=== PATIENT | male | born 1955 ===

== ENCOUNTER 2016-12-30 09:44 | Inpatient (IN) | payer OTHER, MEDICAID ==
[~2016-12-30] VITALS: Ht 170.2 cm; Wt 75.0 kg
[2016-12-30] VITALS (9 sets, daily range): BP systolic 108–143; BP diastolic 72–74; PULSE 93–103; RESP 16–33; TEMP 98.6; Ht 170.2 cm; Wt 75.0 kg
[2016-12-30] MEDS ORDERED: LORAZEPAM 2 MG INJ ONE (09:46)
[2016-12-30] MEDS ORDERED: SOD CHLORIDE 0.9% 1,000 ML IV STA (09:46)
[2016-12-30] MEDS ORDERED: LORAZEPAM 2 MG INJ IV ONE (10:00)
[2016-12-30] MEDS ORDERED: SODIUM CHLORIDE 0.9% 1L BAG IV* STA (10:02)
[2016-12-30 10:13] LABS: ADD SCAN DIFF NO
[2016-12-30 10:17] LABS: BASOPHILS % 0.2 % (0.0-2.0); EOSINOPHILS # 0.1 10^3/ul (0.0-0.5); EOSINOPHILS % 0.7 % (0.0-7.0); HEMATOCRIT 33.8 % (42.0-52.0); HEMOGLOBIN 10.8 g/dl (14.0-18.0); LYMPHOCYTES # 4.2 10^3/ul (0.8-2.9); LYMPHOCYTES % 26.6 % (15.0-51.0); MEAN CORPUSCULAR HEMOGLOBIN 29.9 pg (29.0-33.0); MEAN CORPUSCULAR VOLUME 93.6 fl (82.0-101.0); MEAN PLATELET VOLUME 11.2 fl (7.4-10.4); MONOCYTE # 1.1 10^3/ul (0.3-0.9); MONOCYTES % 6.8 % (0.0-11.0); NEUTROPHIL # 9.9 10^3/ul (1.6-7.5); NEUTROPHILS % 63.3 % (39.0-77.0); PLATELET COUNT 344 10^3/UL (140-415); RED BLOOD COUNT 3.61 10^6/ul (4.70-6.10); RED CELL DISTRIBUTION WIDTH 15.5 % (11.5-14.5); WHITE BLOOD COUNT 15.6 10^3/ul (4.8-10.8)
--- NOTE | 2016-12-30 10:29 | RADRPT ---
PROCEDURE: Chest Radiograph. CLINICAL INDICATION: Respiratory distress. TECHNIQUE: Single frontal chest radiograph. COMPARISON: None available FINDINGS: The patient is rotated. Heart size is poorly evaluated. The cardiomediastinal silhouette is grossl y within normal limits. A tracheostomy tube is present. No infiltrate or effusion is seen. The bones are intact. IMPRESSION: 1. No evidence of acute cardiopulmonary disease. RPTAT: KK .Saurav Natarajan MD, MD Date Time Electronically viewed and signed by .Saurav Natarajan MD, MD on 12/30/2016 10:28 .B/
[2016-12-30] MEDS ORDERED: CEFEPIME 1GM/50 ML (PMX) 50 ML IVPB ONE (10:30)
[2016-12-30] MEDS ORDERED: ACETAMINOPHEN 650 MG SUPP PR ONE (10:30)
[2016-12-30 10:36] LABS: ALBUMIN 3.4 g/dl (3.3-4.9); ALBUMIN/GLOBULIN RATIO 0.91; BILIRUBIN,INDIRECT 0.2 mg/dl (0-1.1); BILIRUBIN,TOTAL 0.2 mg/dl (0.2-1.3); CALCIUM 9.5 mg/dl (8.4-10.2); CREATININE 1.02 mg/dl (0.61-1.24); TOTAL PROTEIN 7.1 g/dl (6.1-8.1)
[2016-12-30 10:41] LABS: AADO2 Arterial 617.1 mmHg (7.0-24.0); Allen Test ACCEPTAB; Arterial Base Excess -1.3 mmol/L (-3.0-3); Arterial COHb 0.3 % (0.0-3.0); Arterial Fraction of Oxyhgb 90.5 % (93.0-99.0); Arterial MetHb 0.2 % (0.0-1.5); Arterial Total Hemglobin 11.6 g/dl (12.0-18.0); MODE VENT - AC
[2016-12-30 10:47] LABS: TROPONIN-I 0.068 ng/ml (0.00-0.12)
[2016-12-30] MEDS ORDERED: VANCOMYCIN 1 GM (PMX) 250 ML IVPB SCH (11:00)
[2016-12-30] MEDS ORDERED: MAGNESIUM HYDROXIDE 30ML CUP PO PRN (11:30)
[2016-12-30] MEDS ORDERED: ONDANSETRON 4 MG INJ IV PRN (11:30)
[2016-12-30] MEDS ORDERED: ACETAMINOPHEN 650 MG SUPP PR PRN (11:30)
[2016-12-30] MEDS ORDERED: DOCUSATE SODIUM 100 MG CAP PO PRN (11:30)
[2016-12-30] MEDS ORDERED: NACL 0.9% 3 ML SYG IV SCH (11:30)
[2016-12-30] MEDS ORDERED: SOD CHLORIDE 0.9% 2,330 ML IV ONE (11:30)
[2016-12-30] MEDS ORDERED: VANCOMYCIN IV PER PHARMACY XX SCH (11:30)
[2016-12-30] MEDS ORDERED: BISACODYL 10 MG SUPP PR PRN ×2 (11:30→15:30)
[2016-12-30 12:01] LABS: ADD UMIC NO; UR ASCORBIC ACID 40 mg/dL (NEGATIVE); UR BILIRUBIN (Dip) NEGATIVE (NEGATIVE); UR BLOOD (Dip) NEGATIVE (NEGATIVE); UR CLARITY CLEAR (CLEAR); UR COLOR YELLOW (YELLOW); UR GLUCOSE (Dip) NEGATIVE (NEGATIVE); UR KETONES (Dip) NEGATIVE (NEGATIVE); UR LEUKOCYTE ESTERASE (Dip) NEGATIVE Leu/ul (NEGATIVE); UR NITRITE (Dip) NEGATIVE (NEGATIVE); UR SPECIFIC GRAVITY (Dip) 1.014 (1.003-1.030); UR TOTAL PROTEIN (Dip) NEGATIVE (NEGATIVE); UR UROBILINOGEN (Dip) NEGATIVE (NEGATIVE)
[2016-12-30] MEDS ORDERED: SERT-165 PO (12:07)
[2016-12-30] MEDS ORDERED: ACET-2047 GTB ×4 (12:14→12:31)
[2016-12-30] MEDS ORDERED: FLUC10SU2 GTB (12:16)
[2016-12-30] MEDS ORDERED: FURO-109 G-TUBE (12:17)
[2016-12-30] MEDS ORDERED: LORA-441 PO (12:18)
[2016-12-30] MEDS ORDERED: KEP100S GTB (12:18)
[2016-12-30] MEDS ORDERED: PANT40TA3 PO (12:19)
[2016-12-30] MEDS ORDERED: UDPHE GTB (12:20)
[2016-12-30] MEDS ORDERED: LACT1CAP4 GTB (12:22)
[2016-12-30] MEDS ORDERED: POLY15DR25 OP (12:23)
[2016-12-30] MEDS ORDERED: BEN25 PO (12:24)
[2016-12-30] MEDS ORDERED: ENAL2.5T GTB (12:26)
[2016-12-30] MEDS ORDERED: ONDA4TAB8 GTB (12:27)
[2016-12-30] MEDS ORDERED: CRAN3875 GTB (12:28)
[2016-12-30] MEDS ORDERED: ACET-141 GTB (12:29)
[2016-12-30] MEDS ORDERED: DOCU-144 GTB (12:32)
[2016-12-30] MEDS ORDERED: MAGN400O4 GTB (12:32)
[2016-12-30] MEDS ORDERED: BISA10SU55 RC (12:33)
[2016-12-30] MEDS ORDERED: NA P135E RC (12:34)
[2016-12-30] MEDS ORDERED: AMIN30LI GTB (12:35)
[2016-12-30] MEDS ORDERED: ASCO500C7 GTB (12:39)
[2016-12-30] MEDS ORDERED: MULT-761 GTB (12:39)
[2016-12-30] MEDS ORDERED: ZINC220C5 GTB (12:40)
--- NOTE | 2016-12-30 13:47 | ERA ---
ER Documentation Chief Complaint Date/Time DATE: 12/30/16 TIME: 13:19 Chief Complaint BIB RA FOR EVAL OF RESP DISTRESS HPI 61-year-old man brought in by EMS from intermediate for shortness of breath, difficulty with bag valve mask via tracheostomy tube, and low oxygen saturation. Patient has history of tracheostomy but normally breathing spontaneously. He suffered anoxic brain injury secondary to accidental airway obstruction and cardiac arrest back in June 2016. He has been bedbound and in the intermediate and has had previous infections. He has a history of seizure disorder, most likely benzodiazepine withdrawal seizures and had a history of recreational benzodiazepine use prior to June. HPI was limited as patient is nonverbal, supplemented by reviewing intermediate records, speaking to EMS, speaking to family were later at the bedside. ROS All systems reviewed and are negative except as per history of present illness. Medications Home Meds Reported Medications Zinc Sulfate* (Zinc Sulfate*) 220 Mg Cap, 220 MG GTB DAILY, CAP 12/30/16 Ascorbic Acid* (Vitamin C*) 500 Mg Capsule.sa, 500 MG GTB DAILY, CAP 12/30/16 Multivitamin (MULTI VITAMIN DAILY) 1 Each Tablet, 1 TAB GTB DAILY, TAB 12/30/16 Amino Acids/Protein Hydrolys (PRO-STAT LIQUID) 30 Ml Liquid.pkt, 30 ML GTB DAILY SUGAR FREE 12/30/16 Na Phos,M-B/Na Phos,Di-Ba (ENEMA READY TO USE) 135 Ml Enema, 135 ML RC PRN Y for CONSTIPATION, ENEMA 12/30/16 Bisacodyl (Dulcolax) 10 Mg Supp.rect, 10 MG RC PRN Y for CONSTIPATION, SUPP.RECT 12/30/16 Magnesium Hydroxide* (Milk Of Magnesia*) 400 Mg/5 Ml Oral.susp, 30 ML GTB DAILY Y for CONSTIPATION, ML 12/30/16 Docusate Sodium* (Colace*) 100 Mg Capsule, 100 MG GTB QHS, #60 CAP 12/30/16 Acetaminophen* (Acetaminophen*) 650 Mg Tablet, 650 MG GTB TRACH CHANGE, #30 TAB 12/30/16 Acetaminophen* (Acetaminophen*) 650 Mg Tablet, 650 MG GTB Q4 Y for FEVER GREATER THAN 100.6, #30 TAB 12/30/16 Acetaminophen* (Acetaminophen*) 650 Mg Tablet, 650 MG GTB Q6H Y for MILD PAIN LEVEL 1-3, #30 TAB 12/30/16 Acetaminophen* (Acetaminophen*) 500 MG Extra Strength Tablet, 1000 MG GTB Q6H Y for MODERATE PAIN LEVEL 4-6, TAB 12/30/16 Cran/Vitc/Mannose/Inulin/Brom (Uti-Stat Liquid) 3,875 Mg/30 Ml Liquid, 3875 MG GTB DAILY 12/30/16 Ondansetron Hcl* (Zofran*) 4 Mg Tablet, 4 MG GTB Q6H Y for NAUSEA AND OR VOMITING, TAB 12/30/16 Enalapril Maleate* (Enalapril Maleate*) 2.5 Mg Tablet, 2.5 MG GTB Q6 Y for ELEVATED BLOOD PRESSURE, TAB FOR BP OVER 160 12/30/16 Diphenhydramine Hcl* (Benadryl*) 25 Mg Cap, 25 MG PO Q4 Y for ITCHING, CAP 12/30/16 Polyvinyl Alcohol (Tears Again) 15 Ml Drops, 1 DRP OP Q4, BOTTLE 12/30/16 Lactobacillus Acidophilus/Pect (Acidophilus-Pectin Capsule) 1 Each Capsule, 1 EACH GTB BID, CAP 12/30/16 Phenobarbital* (Phenobarbital* Liq) 20 Mg/5 Ml Elix, 60 MG GTB TID for 30 Days, BOTTLE 12/30/16 Pantoprazole* (Protonix*) 40 Mg Tablet.dr, 40 MG PO DAILY, TAB 12/30/16 Lorazepam* (Ativan*) 0.5 Mg Tablet, 0.5 MG PO Q6, #60 TAB 12/30/16 Levetiracetam* (Keppra* (Ped)) 100 Mg/Ml Liq, 1000 MG GTB BID for 30 Days, BOTTLE 12/30/16 Furosemide* (Lasix*) 40 Mg Tablet, 40 MG G-TUBE DAILY, TAB 12/30/16 Fluconazole (Fluconazole) 10 Mg/1 Ml Susp.recon, 200 MG GTB DAILY 12/30/16 Acetaminophen* (Acetaminophen*) 650 Mg Tablet, 650 MG GTB BID Y for PAIN AND OR ELEVATED TEMP, #30 TAB 12/30/16 Discontinued Reported Medications Sertraline Hcl* (Sertraline Hcl*) 100 Mg Tablet, 100 MG PO DAILY, #30 TAB 12/30/16 Allergies Allergies: Coded Allergies: No Known Allergy (Unverified , 12/30/16) PMhx/Soc Previous benzodiazepine use with withdrawal seizures, seizure disorder, anoxic encephalopathy, respiratory failure on mechanical ventilator and tracheostomy tube, dysphagia, depression, hypertension, gastritis History of Surgery: Yes (TRACHEOSTOMY , g-tube placment ) Anesthesia Reaction: No Hx Neurological Disorder: Yes (anoxic brain injury ) Hx Miscellaneous Medical Probl: Yes (benzo abuse ( ativan) per daughter ) Hx Alcohol Use: No (UTD) Hx Substance Use: No (UTD) Smoking Status: Never smoker FmHx Family History: No diabetes Physical Exam Vitals Vital Signs Date Time Temp Pulse Resp B/P Pulse Ox O2 Delivery O2 Flow Rate FiO2 12/30/16 13:04 104 28 94 100 12/30/16 12:27 98.6 104 20 100/68 100 Mechanical Ventilator 12/30/16 11:10 128 38 94 100 12/30/16 10:26 97.1 12/30/16 10:07 129 36 95 100 12/30/16 09:53 99.1 119 26 137/121 100 Physical Exam GENERAL: Elderly debilitated appearing man with a tracheostomy, appears to be seizing, febrile temperature 100.9F HEENT: Dry mucous membranes, pink conjunctiva, tracheostomy tube in place, eyes deviated upward NEURO: Upward eye deviation, bilateral upper extremity tonicity with clonic movement of the right index finger overall appearance of seizure activity, nonverbal CARDIAC: Tachycardic and regular LUNGS: Poor breath sounds bilaterally, no wheezing or stridor ABDOMEN: Soft nontender, no guarding, no rigidity, no rebound, no psoas sign no obturator sign. SKIN: Warm and dry to touch, superficial contusions, no hematomas or lacerations EXTREMITIES: No clubbing cyanosis or edema, diffuse muscular wasting and contractures to the upper and lower extremities PSYCH: Unable to assess Result Diagram: 12/30/16 1000 12/30/16 1000 Results 24 hrs Laboratory Tests Test 12/30/16 10:00 12/30/16 10:20 12/30/16 11:45 White Blood Count 15.610^3/ul Red Blood Count 3.6110^6/ul Hemoglobin 10.8g/dl Hematocrit 33.8% Mean Corpuscular Volume 93.6fl Mean Corpuscular Hemoglobin 29.9pg Mean Corpuscular Hemoglobin Concent 32.0g/dl Red Cell Distribution Width 15.5% Platelet Count 23048^3/UL Mean Platelet Volume 11.2fl Neutrophils % 63.3% Lymphocytes % 26.6% Monocytes % 6.8% Eosinophils % 0.7% Basophils % 0.2% Nucleated Red Blood Cells % 0.0/100WBC Neutrophils # 9.910^3/ul Lymphocytes # 4.210^3/ul Monocytes # 1.110^3/ul Eosinophils # 0.110^3/ul Basophils # 0.010^3/ul Nucleated Red Blood Cells # 0.010^3/ul Sodium Level 142mmol/L Potassium Level 4.0mmol/L Chloride Level 95mmol/L Carbon Dioxide Level 30mmol/L Anion Gap 21 Blood Urea Nitrogen 32mg/dl Creatinine 1.02mg/dl Glucose Level 160mg/dl Lactic Acid Level 2.8mmol/L Calcium Level 9.5mg/dl Total Bilirubin 0.2mg/dl Direct Bilirubin 0.00mg/dl Indirect Bilirubin 0.2mg/dl Aspartate Amino Transf (AST/SGOT) 234IU/L Alanine Aminotransferase (ALT/SGPT) 285IU/L Alkaline Phosphatase 157IU/L Troponin I 0.068ng/ml Total Protein 7.1g/dl Albumin 3.4g/dl Globulin 3.70g/dl Albumin/Globulin Ratio 0.91 Lipase 477U/L Blood Gas Specimen Source Blood arterial Arterial Blood Date Drawn 12/30/2016 10:30:11 AM Arterial Blood pH (Temp corrected) 7.450 Arterial Blood pCO2 (Temp correct) 32.4mmhg Arterial Blood pO2 (Temp corrected) 63.5mmHG Arterial Blood HCO3 22.0mmol/L Arterial Blood Base Excess -1.3mmol/L Arterial Blood Oxygen Saturation 91.0mmHG Emmanuel Test ACCEPTAB Arterial Blood Gas Puncture Site Right Radial Arterial Blood Carboxyhemoglobin 0.3% Arterial Blood Methemoglobin 0.2% Blood Gas A-a O2 Differential 617.1mmHg Oxyhemoglobin Percent 90.5% Total Hemoglobin 11.6g/dl Blood Gas Temperature 37.0C Blood Gas Respiration Rate 16.0 Blood Gas Actual Respiration Rate 38 Blood Gas Modality VENT - AC FiO2 100.0% Blood Gas Tidal Volume 600.0mL Blood Gas Low PEEP Setting 5.0cmH2O Blood Gas Notified Whom Ross Blood Gas Notified Time 12/30/2016 10:41:15 AM Urine Color YELLOW Urine Clarity CLEAR Urine pH 6.0 Urine Specific [place] 1.014 Urine Ketones NEGATIVEmg/dL Urine Nitrite NEGATIVEmg/dL Urine Bilirubin NEGATIVEmg/dL Urine Urobilinogen NEGATIVEmg/dL Urine Leukocyte Esterase NEGATIVELeu/ul Urine Hemoglobin NEGATIVEmg/dL Urine Glucose NEGATIVEmg/dL Urine Total Protein NEGATIVEmg/dl Current Medications Medications (Trade) Dose Ordered Sig/Wagner Route PRN Reason Start Time Stop Time Status Last Admin Dose Admin Lorazepam 2 mg 2 mg ONCE ONCE IV 12/30/16 10:00 12/30/16 10:35 DC 12/30/16 10:00 Sodium Chloride (NS) 1,000 ml @ 1,000 mls/hr Q1H STAT IV 12/30/16 09:46 12/30/16 10:45 DC 12/30/16 09:46 Sodium Chloride (NS) 2,000 ml BOLUS OVER 2 HOURS STAT IV* 12/30/16 10:02 12/30/16 10:04 DC 12/30/16 10:33 Acetaminophen 650 mg 650 mg ONCE ONCE NH 12/30/16 10:30 12/30/16 10:31 DC 12/30/16 11:18 Cefepime HCl 50 ml @ 100 mls/hr ONCE ONCE IVPB 12/30/16 10:30 12/30/16 10:59 DC 12/30/16 11:18 Vancomycin HCl 250 ml @ 125 mls/hr ONCE IVPB 12/30/16 11:00 12/30/16 12:59 DC 12/30/16 11:56 Sodium Chloride 2,330 ml @ 1,165 mls/hr BOLUS X1 ONCE IV 12/30/16 11:30 12/30/16 13:29 Cefepime HCl (Maxipime 2gm/50 ml (Pmx)) 50 ml @ 100 mls/hr Q8 IVPB 12/30/16 22:00 Vancomycin HCl (Vanco Iv Per Pharmacy) 1 ea Per Rx Protocol XX 12/30/16 11:30 IV Flush (NS 3 ml) 3 ml PER PROTOCOL IV 12/30/16 11:30 Ondansetron HCl (Zofran Inj) 4 mg Q6H PRN IV NAUSEA AND/OR VOMITING 12/30/16 11:30 Acetaminophen (Tylenol Supp) 650 mg Q6H PRN [place] PAIN LEVEL 1-3 OR FEVER 12/30/16 11:30 Morphine Sulfate (morphine) 2 mg Q4H PRN IV SEVERE PAIN LEVEL 7-10 12/30/16 11:30 Docusate Sodium (Colace) 100 mg Q12H PRN PO CONSTIPATION 12/30/16 11:30 Magnesium Hydroxide (Milk Of Mag) 30 ml DAILY PRN PO CONSTIPATION 12/30/16 11:30 Bisacodyl (Dulcolax Supp) 10 mg DAILY PRN [place] CONSTIPATION 12/30/16 11:30 Pantoprazole 40 mg 40 mg DAILY@06 IV 12/31/16 06:00 Vancomycin HCl 100 ml @ 100 mls/hr ONCE IVPB 12/30/16 14:00 12/30/16 14:59 Vancomycin HCl (Vancocin) 250 ml @ 125 mls/hr Q12H IVPB 12/31/16 00:00 Procedures/MDM Patient was placed on telemetry monitor rhythm strip revealed a sinus tachycardia at 130 bpm. Patient was febrile. Blood and urine cultures were ordered results are pending I will follow-up. Mars catheter was placed. Tracheostomy tube was suctioned. I administered about 3 L normal saline intravenously for dehydration. I treated the patient with cefepime 1 g IV and vancomycin 1 g IV. Patient received acetaminophen per rectum for fever. EKG performed, read by me revealed a sinus tachycardia at 130 bpm, normal axis, narrow QRS complex, no concerning ST elevations or depressions noted. For active tonic-clonic seizure I administered lorazepam 2 mg IV 1. One view chest x-ray performed, read by me revealed a tracheostomy in place, no acute infiltrates, no pneumothorax. CBC reveals a leukocytosis of 16, electrolytes revealed dehydration with a BUN/ creatinine of 32/1, liver function tests normal, troponin negative, lactic acid elevated at 2.8. Urine analysis was negative for infection. Patient's oxygen saturation is within normal limits at this time, his tachycardia has improved and seizure activity have resolved. His laboratory abnormalities as well as his low-grade fever may be secondary to his seizure although given his overall condition I will treat him for early sepsis pending cultures. Patient's infectious symptoms have not stabilized and the patient is at risk of rapid decompensation. The patient will be admitted for careful hydration, antibiotic therapy, and infectious source control. Severe Sepsis Assessment: Infectious Source: Sepsis End organ damage indicated by: Lactate > 2.0 mmol/L Acute Resp Failure (sat < 92% w/o oxygen) Severe Sepsis Managment: Blood Cultures X 2 before broad spectrum antibiotics initiated within 3 hours of recognition. 30 ml/kg NS bolus Completed Initial Lactate: Elevated Repeat Lactate pending Critical Care: Time: 38 minutes, this was time separate from other billable procedures Treatments/Evaluations: Emergent fluid management, while maintaining close respiratory support. Immediate broad spectrum antibiotic therapy. Simultaneous assessment for possible sources in order to direct therapy. Consideration for invasive and chemical support to prevent respiratory or cardiac collapse. Septic Shock Assessment (1 hour post 30 ml/kg fluid bolus): Hypotension (SBP < 90 or 40 mmHg drop, MAP < 65): No Lactic acid > 4.0 No Perfusion Reassessment for Septic Shock: Temp 98.7, pulse 100, blood pressure 120/80, respiratory rate 18 breaths per minute, oxygen saturation 100% Heart Exam: Tachycardic Lung Exam: No Crackles Capillary Refill: Less than 2 seconds Peripheral Pulses: Radially present Skin: Warm and dry Hypotensive Treatment (not required for isolated lactic acid elevation): Comfort Care: No Central LIne: Not indicated Vasopressor started: Not indicated I considered further perfusion assessment with CVP measurement, SCVO2, bedside ultrasound volume assessment, passive leg raise, trial of further fluid bolus. And preceded with aggressive IV hydration and broad-spectrum antibiotics Accepting Care Team: Current data and ongoing care discussed. Time: Time of admission Primary Provider: Hospitalist Consulting: Infectious disease and pulmonology Outstanding Data: none Departure Diagnosis: Primary Impression: Acute respiratory failure Qualified Code: J96.01 - Acute respiratory failure with hypoxia and hypercapnia Additional Impressions: Status epilepticus Sepsis Qualified Code: A41.9 - Sepsis, due to unspecified organism Acute encephalopathy Dehydration Condition: Serious KATHERIN DEVRIES MD Dec 30, 2016 13:32
[2016-12-30] MEDS ORDERED: VANCOMYCIN 500MG/NS (PMX) 100 ML IVPB SCH (14:00)
--- NOTE | 2016-12-30 15:04 | CONS ---
Date/Time of Note Date/Time of Note DATE: 12/30/16 TIME: 14:59 Assessment/Plan Assessment/Plan Chief Complaint/Hosp Course 61 yo male with history of cardiac arrest with anoxic brain injury, post anoxic seizures admitted with increasing SOB. -continue current dose of AED as documented in [place] on Keppra and Phenobarbital -check PHB levels to ensure therapeutic -ativan 0.1 mg/kg for further seizure activity -seizure precautions -Head CT without contrast to evaluate for further anoxic injury, ischemic injury -Routine EEG -will follow w further recommendations Problems: Consultation Date/Type/Reason Admit Date/Time 12/30/16 Date of Consultation: Dec 30, 2016 Type of Consultation: Neurology Reason for Consultation cardiac arrest with seizures Hx of Present Illness 61 yo male brought from [place] with increased shortness of breath and desaturation, he had hx of anoxic brain injury secondary to airway obstructive and cardiac arrest documented in Jun 2016 with post anoxic seizure history currently managed on Keppra and Phenobarbital. On exam he remains unresponsive with intact brainstem reflexes with some twitching observed in right UE after stimulation, no generalized seizure reported. Past Medical History cardiac arrest s/p trach Social History Smoking Status: Never smoker Exam/Review of Systems Vital Signs Vitals Vital Signs Date Time Temp Pulse Resp B/P Pulse Ox O2 Delivery O2 Flow Rate FiO2 12/30/16 13:04 104 28 94 100 12/30/16 12:27 98.6 100/68 Mechanical Ventilator Exam tracheostomy in place unable to open his eyes to voice difficult to arouse no gaze deviation CN pupils 1 mm sluggish corneals present, tracheostomy in place Motor some withdrawal in UE briefly with right arm twitching noted, left no withdrawal bilateral LE no movement Reflexes 1+ throughout toes mute Results Result Diagram: 12/30/16 1000 12/30/16 1000 Results 24 hrs Laboratory Tests Test 12/30/16 10:00 12/30/16 10:20 12/30/16 11:45 12/30/16 13:15 White Blood Count 15.6 H Red Blood Count 3.61 L Hemoglobin 10.8 L Hematocrit 33.8 L Mean Corpuscular Volume 93.6 Mean Corpuscular Hemoglobin 29.9 Mean Corpuscular Hemoglobin Concent 32.0 Red Cell Distribution Width 15.5 H Platelet Count 344 Mean Platelet Volume 11.2 H Neutrophils % 63.3 Lymphocytes % 26.6 Monocytes % 6.8 Eosinophils % 0.7 Basophils % 0.2 Nucleated Red Blood Cells % 0.0 Neutrophils # 9.9 H Lymphocytes # 4.2 H Monocytes # 1.1 H Eosinophils # 0.1 Basophils # 0.0 Nucleated Red Blood Cells # 0.0 Sodium Level 142 Potassium Level 4.0 Chloride Level 95 L Carbon Dioxide Level 30 Anion Gap 21 H Blood Urea Nitrogen 32 H Creatinine 1.02 Glucose Level 160 Lactic Acid Level 2.8 *H 2.6 *H Calcium Level 9.5 Total Bilirubin 0.2 Direct Bilirubin 0.00 Indirect Bilirubin 0.2 Aspartate Amino Transf (AST/SGOT) 234 H Alanine Aminotransferase (ALT/SGPT) 285 H Alkaline Phosphatase 157 H Troponin I 0.068 Total Protein 7.1 Albumin 3.4 Globulin 3.70 H Albumin/Globulin Ratio 0.91 Lipase 477 H Blood Gas Specimen Source Blood arterial Arterial Blood Date Drawn 12/30/2016 10:30:11 AM Arterial Blood pH (Temp corrected) 7.450 Arterial Blood pCO2 (Temp correct) 32.4 L Arterial Blood pO2 (Temp corrected) 63.5 L Arterial Blood HCO3 22.0 Arterial Blood Base Excess -1.3 Arterial Blood Oxygen Saturation 91.0 L Emmanuel Test ACCEPTAB Arterial Blood Gas Puncture Site Right Radial Arterial Blood Carboxyhemoglobin 0.3 Arterial Blood Methemoglobin 0.2 Blood Gas A-a O2 Differential 617.1 H Oxyhemoglobin Percent 90.5 L Total Hemoglobin 11.6 L Blood Gas Temperature 37.0 Blood Gas Respiration Rate 16.0 Blood Gas Actual Respiration Rate 38 Blood Gas Modality VENT - AC FiO2 100.0 Blood Gas Tidal Volume 600.0 Blood Gas Low PEEP Setting 5.0 Blood Gas Notified Whom M.D. Blood Gas Notified Time 12/30/2016 10:41:15 AM Urine Color YELLOW Urine Clarity CLEAR Urine pH 6.0 Urine Specific [place] 1.014 Urine Ketones NEGATIVE Urine Nitrite NEGATIVE Urine Bilirubin NEGATIVE Urine Urobilinogen NEGATIVE Urine Leukocyte Esterase NEGATIVE Urine Hemoglobin NEGATIVE Urine Glucose NEGATIVE Urine Total Protein NEGATIVE Medications Medications Current Medications Cefepime HCl (Maxipime 2gm/50 ml (Pmx)) 50 ml @ 100 mls/hr Q8 IVPB ; Start at 22:00 Ondansetron HCl (Zofran Inj) 4 mg Q6H PRN IV NAUSEA AND/OR VOMITING; Start at 11:30 Acetaminophen (Tylenol Supp) 650 mg Q6H PRN [place] PAIN LEVEL 1-3 OR FEVER; Start 12/30/16 at 11:30 Morphine Sulfate (morphine) 2 mg Q4H PRN IV SEVERE PAIN LEVEL 7-10; Start 12/30 at 11:30 Docusate Sodium (Colace) 100 mg Q12H PRN PO CONSTIPATION; Start 12/30/16 at 11: 30 Magnesium Hydroxide (Milk Of Mag) 30 ml DAILY PRN PO CONSTIPATION; Start at 11:30 Bisacodyl (Dulcolax Supp) 10 mg DAILY PRN [place] CONSTIPATION; Start 12/30/16 at 11 :30 Pantoprazole 40 mg 40 mg DAILY@06 IV ; Start 12/31/16 at 06:00 Vancomycin HCl 100 ml @ 100 mls/hr ONCE IVPB Last administered on 12/30/16t 14 :32; Admin Dose 100 MLS/HR; Start 12/30/16 at 14:00; Stop 12/30/16 at 14:59 Vancomycin HCl (Vancocin) 250 ml @ 125 mls/hr Q12H IVPB ; Start 12/31/16 at 00: 00 DEMETRICE CORREA MD Dec 30, 2016 15:03
[2016-12-30] MEDS ORDERED: MAGNESIUM HYDROXIDE 30ML CUP GTB PRN (15:30)
[2016-12-30] MEDS ORDERED: ONDANSETRON 4 MG TAB GTB PRN (15:30)
[2016-12-30] MEDS ORDERED: ENALAPRIL 2.5 MG TAB GTB PRN (15:30)
[2016-12-30] MEDS ORDERED: [UNRECOGNIZED DRUG - REMARK] XX SCH (16:30)
--- NOTE | 2016-12-30 16:32 | RADRPT ---
PROCEDURE: CT brain without contrast CLINICAL INDICATION: Evaluate anoxic injury, seizures TECHNIQUE: CT of the brain without contrast performed on a multidetector CT scanner, with multiplan ar reformats. One or more of the following dose reduction techniques were used: Automated exposure control, adjustment in mA and / or kV according to patient size, use of iterative reconstructive tru hnique. CTDIvol = 45 mGy; DLP = 720 mGy-cm. COMPARISON: None available FINDINGS: There are mild patient motion related artifacts. There are relatively extensive areas of loss of gr ay-white differentiation involving the bilateral cerebral hemispheres seen at the frontal, temporal, occipital and parietal regions. There is prominent hypodensity involving the basal ganglia bilater ally. Findings are compatible with global hypoxic - ischemic injury. No acute intracranial hemorrh age is identified. No extra-axial fluid collection is seen. There are areas of relative sulcal eff acement bilaterally without midline shift, herniation or hydrocephalus identified. The ventricles and sulci are otherwise mild to moderate enlarged compatible with volume loss. Atherosclerotic calcifications of the proximal intracranial arteries are noted. Osseous structures are unremarkable. Mastoid air cells and imaged paranasal sinuses grossly clear. IMPRESSION: 1. Relatively extensive findings involving the bilateral cerebral hemispheres compatible with a awilda bal hypoxic - ischemic injury. Consider MRI for further assessment. 2. No acute intracranial hemorrhage, herniation or midline shift identified. 3. Underlying volume loss noted. Call report: Findings were called to Michelle Mercado, Clinical Operating Room Surgical Technician at 04:30 p.m. on 12/30/2016. RPTAT: VV .Josh Ayala MD, MD Date Time Electronically viewed and signed by .Josh Ayala MD, on 12/30/2016 16:32 .O/
--- NOTE | 2016-12-30 16:40 | CONS ---
Date/Time of Note Date/Time of Note DATE: 12/30/16 TIME: 16:39 Consultation Date/Type/Reason Admit Date/Time 12/30/16 Type of Consultation: ID Reason for Consultation This is Dr. Ray Ramirez dictating infectious consult on Brent Rayo, date of admission 12/30/2016 date of consultation dictation 12/30/2016, reason for consultation is antibiotic management. Patient is a 61-year-old white male with numerous problems who was admitted for evaluation of respiratory distress. 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 #2 G-tube placement. #3 Mars catheter. #4 seizure disorder The patient is nonverbal. On admission his white count was 15.6, H&H 10.8 and 33.8, platelet count 344,000. BUN creatinine 32/1.02. Chest x-ray shows no acute cardiopulmonary disease. Lactic acid elevated at 2.8 and 2.6. Urine is negative for nitrite and leukocyte esterase. Patient was started on vancomycin and cefepime, blood cultures were drawn and urine analysis and cultures were done. Past medical history as outlined Past surgical history includes tracheostomy and G-tube placement. Family history is noncontributory Social history: No history of smoking drinking or abuse of drugs. No known allergies Review of systems is as per HPI. On physical examination patient is an elderly appearing debilitated male. He has a temperature of 100.9. SHEENT within normal limits Neck is supple, tracheostomy in place without discharge. Chest is clear to P&A. Heart without murmur gallop Abdomen is soft and nontender, G-tube in place. Extremities without cyanosis clubbing or edema, diffuse muscle wasting and contractures of the upper and lower extremities. Rectal/genital exams: Mars catheter in place Neurological evaluation: Patient has tremors consistent with Parkinson's disease. Impression/plan: Patient is a chronically ill male who comes in now with fever and leukocytosis, etiology of which is unclear. He does present with respiratory distress, although his chest x-ray does not yet show a significant infiltrate. We will continue him on vancomycin and cefepime and await culture reports. Blood cultures urine and respiratory cultures were ordered. I want to thank the hospitalist for asking me to see this unfortunate gentleman in consultation. Thank you for this pulley maintainer. Social History Smoking Status: Never smoker Exam/Review of Systems Vital Signs Vitals Vital Signs Date Time Temp Pulse Resp B/P Pulse Ox O2 Delivery O2 Flow Rate FiO2 12/30/16 16:29 103 12/30/16 15:53 20 113/81 100 Mechanical Ventilator 12/30/16 13:04 100 12/30/16 12:27 98.6 Results Result Diagram: 12/30/16 1000 12/30/16 1000 Results 24 hrs Laboratory Tests Test 12/30/16 10:00 12/30/16 10:20 12/30/16 11:45 12/30/16 13:15 White Blood Count 15.6 H Red Blood Count 3.61 L Hemoglobin 10.8 L Hematocrit 33.8 L Mean Corpuscular Volume 93.6 Mean Corpuscular Hemoglobin 29.9 Mean Corpuscular Hemoglobin Concent 32.0 Red Cell Distribution Width 15.5 H Platelet Count 344 Mean Platelet Volume 11.2 H Neutrophils % 63.3 Lymphocytes % 26.6 Monocytes % 6.8 Eosinophils % 0.7 Basophils % 0.2 Nucleated Red Blood Cells % 0.0 Neutrophils # 9.9 H Lymphocytes # 4.2 H Monocytes # 1.1 H Eosinophils # 0.1 Basophils # 0.0 Nucleated Red Blood Cells # 0.0 Sodium Level 142 Potassium Level 4.0 Chloride Level 95 L Carbon Dioxide Level 30 Anion Gap 21 H Blood Urea Nitrogen 32 H Creatinine 1.02 Glucose Level 160 Lactic Acid Level 2.8 *H 2.6 *H Calcium Level 9.5 Total Bilirubin 0.2 Direct Bilirubin 0.00 Indirect Bilirubin 0.2 Aspartate Amino Transf (AST/SGOT) 234 H Alanine Aminotransferase (ALT/SGPT) 285 H Alkaline Phosphatase 157 H Troponin I 0.068 Total Protein 7.1 Albumin 3.4 Globulin 3.70 H Albumin/Globulin Ratio 0.91 Lipase 477 H Blood Gas Specimen Source Blood arterial Arterial Blood Date Drawn 12/30/2016 10:30:11 AM Arterial Blood pH (Temp corrected) 7.450 Arterial Blood pCO2 (Temp correct) 32.4 L Arterial Blood pO2 (Temp corrected) 63.5 L Arterial Blood HCO3 22.0 Arterial Blood Base Excess -1.3 Arterial Blood Oxygen Saturation 91.0 L Emmanuel Test ACCEPTAB Arterial Blood Gas Puncture Site Right Radial Arterial Blood Carboxyhemoglobin 0.3 Arterial Blood Methemoglobin 0.2 Blood Gas A-a O2 Differential 617.1 H Oxyhemoglobin Percent 90.5 L Total Hemoglobin 11.6 L Blood Gas Temperature 37.0 Blood Gas Respiration Rate 16.0 Blood Gas Actual Respiration Rate 38 Blood Gas Modality VENT - AC FiO2 100.0 Blood Gas Tidal Volume 600.0 Blood Gas Low PEEP Setting 5.0 Blood Gas Notified Whom MSpeedy Blood Gas Notified Time 12/30/2016 10:41:15 AM Urine Color YELLOW Urine Clarity CLEAR Urine pH 6.0 Urine Specific [place] 1.014 Urine Ketones NEGATIVE Urine Nitrite NEGATIVE Urine Bilirubin NEGATIVE Urine Urobilinogen NEGATIVE Urine Leukocyte Esterase NEGATIVE Urine Hemoglobin NEGATIVE Urine Glucose NEGATIVE Urine Total Protein NEGATIVE Medications Medications Current Medications Cefepime HCl (Maxipime 2gm/50 ml (Pmx)) 50 ml @ 100 mls/hr Q8 IVPB ; Start at 22:00 Ondansetron HCl (Zofran Inj) 4 mg Q6H PRN IV NAUSEA AND/OR VOMITING; Start at 11:30 Acetaminophen (Tylenol Supp) 650 mg Q6H PRN [place] PAIN LEVEL 1-3 OR FEVER; Start 12/30/16 at 11:30 Morphine Sulfate (morphine) 2 mg Q4H PRN IV SEVERE PAIN LEVEL 7-10; Start 12/30 at 11:30 Docusate Sodium (Colace) 100 mg Q12H PRN PO CONSTIPATION; Start 12/30/16 at 11: 30 Magnesium Hydroxide (Milk Of Mag) 30 ml DAILY PRN PO CONSTIPATION; Start at 11:30 Bisacodyl (Dulcolax Supp) 10 mg DAILY PRN [place] CONSTIPATION; Start 12/30/16 at 11 :30 Pantoprazole 40 mg 40 mg DAILY@06 IV ; Start 12/31/16 at 06:00 Vancomycin HCl (Vancocin) 250 ml @ 125 mls/hr Q12H IVPB ; Start 12/31/16 at 00: 00 Ascorbic Acid (Vitamin C) 500 mg DAILY GTB ; Start 12/31/16 at 09:00 Bisacodyl (Dulcolax Supp) 10 mg DAILY PRN [place] CONSTIPATION; Start 12/30/16 at 15 :30 Enalapril Maleate (Vasotec) 2.5 mg Q6H PRN GTB SBP ABOVE 160; Start 12/30/16 at 15:30 Furosemide (Lasix) 40 mg DAILY PEG ; Start 12/31/16 at 09:00 Lorazepam (Ativan) 0.5 mg Q6 PO ; Start 12/30/16 at 18:00 Magnesium Hydroxide (Milk Of Mag) 30 ml DAILY PRN GTB CONSTIPATION; Start 12/30 at 15:30 Multivitamins Therapeutic (Theragran) 1 tab DAILY GTB ; Start 12/31/16 at 09:00 Ondansetron HCl (Zofran Tab) 4 mg Q6H PRN GTB NAUSEA AND/OR VOMITING; Start at 15:30 Phenobarbital (Luminal) 60 mg TID GTB ; Start 12/30/16 at 21:00 Eye Lubricant (Artificial Tears Oph) 1 drop Q4 BOTH EYES ; Start 12/30/16 at 18: 00 Zinc Sulfate (Zinc Sulfate) 220 mg DAILY GTB ; Start 12/31/16 at 09:00 Saccharomyces Boulardii (Florastor) 250 mg DAILY GTB ; Start 12/31/16 at 09:00 Levetiracetam (Keppra Liquid) 1,000 mg BID GTB ; Start 12/30/16 at 21:00 RAY RAMIREZ MD Dec 30, 2016 16:40
--- NOTE | 2016-12-30 17:26 | HP ---
Date/Time of Note Date/Time of Note DATE: 12/30/16 TIME: 17:20 Assessment/Plan VTE Prophylaxis VTE Prophylaxis Intervention: SCD's Assessment/Plan Chief Complaint/Hosp Course Assessment and plan 1. Acute respiratory failure. Etiology possible aspiration versus seizure. Sand Plant Attendant consulted. Continue on ventilation. Continue with pulmonary hygiene. Titrate off O2 as tolerated. 2. Seizures. Likely secondary to previous anoxic brain injury. Recent CT scan of the head did show relatively extensive findings involving the bilateral cerebral hemispheres compatible with a global hypoxic ischemic injury. Patient of note already has a tracheostomy in place. He is currently on mechanical ventilation. Neurologist following. Continue on barbital as well as Keppra for now. 3. Recent cardiac arrest. Follow-up on echocardiogram. Continue optimization of cardiovascular medications 4. Suspect sepsis. Etiology unknown at this time. ID consult is following. On broad-spectrum antibiotics for now. Follow-up on vasques cultures. Lactic acidosis possibly from seizure. 5. Leukocytosis suspect secondary to sepsis versus seizures. Antipyretics as needed. Continue with antibiotic regimen. 6. History of essential hypertension. Continue antihypertensives and adjust as needed Admission process times greater than 40 minutes Discussed plan of care with Dr. Camacho Problems: HPI/ROS Admit Date/Time Admit Date/Time 12/30/16 Hx of Present Illness This is a 61-year-old male with recent history of cardiac arrest (reportedly after choking from food) who was previously hospitalized at [facility] 3 weeks ago and found to have anoxic encephalopathy with also noted history of PEG and trach placement as well as hypertension and drug abuse as well as suicide attempt and COPD and also seizure from previous anoxic brain injury, who came to [facility] form nursing home facility after being found to be dyspneic with questionable recurrent seizure. Per report patient had become dyspneic and had difficulty with oxygen saturation maintenance above 90%. He was subsequently brought to [facility]. He did have a brain CT scan of his head that showed relatively extensive findings involving the bilateral cerebral hemispheres compatible with global hypoxic ischemic injury. There is no acute intracranial hemorrhage or herniation or midline shift. Additionally chest x-ray done showed no evidence of acute cardiopulmonary process. Additional white count did show him to have leukocytosis with white count of 15.6 and he did have some also noted anemia normocytic normochromic. He is found to be with suspect sepsis with lactic acid of 2.8 which did downward trend 2.6 with also noted transaminitis with no hyperbilirubinemia. Patient also came in afebrile but was noted to be tachycardic as high as 129 but this did downward trend. We will evaluate him for the aformentiond issues ROS 12 point review of systems obtained and entirely negative except that mentioned in history present illness PMH/Family/Social Past Medical History 1. Cardiac arrest with anoxic encephalopathy 2. Status post trach and PEG 3. COPD 4. Seizure from anoxic encephalopathy 5. Hypertension 6. History of drug abuse 7. History of left knee surgery Social History Alcohol Use: heavy (Previously) Smoking Status: Former smoker Drug Use: other (Reportedly abused benzodiazepine medication) Exam/Review of Systems Vital Signs Vitals Vital Signs Date Time Temp Pulse Resp B/P Pulse Ox O2 Delivery O2 Flow Rate FiO2 12/30/16 17:12 98.0 93 29 143/73 100 Mechanical Ventilator 12/30/16 16:45 100 Exam Constitutional: non-verbal, other (Intubated on trach) Eyes: No icteric Neck: other (Tracheostomy in place) Respiratory: respirations (Minimally diminished lung bases) Cardiovascular: other Gastrointestinal: other (PEG tube in place), soft (Tachycardic) Musculoskeletal: other (Noted with some foot drop), swelling (Noted with minimal edema bilateral lower extremity) Neurological: other (Noted with some twitching suspect possible tremors and seizure), unresponsive Labs Result Diagram: 12/30/16 1000 12/30/16 1000 Medications Medications Current Medications Cefepime HCl (Maxipime 2gm/50 ml (Pmx)) 50 ml @ 100 mls/hr Q8 IVPB ; Start at 22:00 Ondansetron HCl (Zofran Inj) 4 mg Q6H PRN IV NAUSEA AND/OR VOMITING; Start at 11:30 Acetaminophen (Tylenol Supp) 650 mg Q6H PRN [place] PAIN LEVEL 1-3 OR FEVER; Start 12/30/16 at 11:30 Morphine Sulfate (morphine) 2 mg Q4H PRN IV SEVERE PAIN LEVEL 7-10; Start 12/30 at 11:30 Docusate Sodium (Colace) 100 mg Q12H PRN PO CONSTIPATION; Start 12/30/16 at 11: 30 Magnesium Hydroxide (Milk Of Mag) 30 ml DAILY PRN PO CONSTIPATION; Start at 11:30 Bisacodyl (Dulcolax Supp) 10 mg DAILY PRN [place] CONSTIPATION; Start 12/30/16 at 11 :30 Pantoprazole 40 mg 40 mg DAILY@06 IV ; Start 12/31/16 at 06:00 Vancomycin HCl (Vancocin) 250 ml @ 125 mls/hr Q12H IVPB ; Start 12/31/16 at 00: 00 Ascorbic Acid (Vitamin C) 500 mg DAILY GTB ; Start 12/31/16 at 09:00 Bisacodyl (Dulcolax Supp) 10 mg DAILY PRN [place] CONSTIPATION; Start 12/30/16 at 15 :30 Enalapril Maleate (Vasotec) 2.5 mg Q6H PRN GTB SBP ABOVE 160; Start 12/30/16 at 15:30 Furosemide (Lasix) 40 mg DAILY PEG ; Start 12/31/16 at 09:00 Lorazepam (Ativan) 0.5 mg Q6 PO ; Start 12/30/16 at 18:00 Magnesium Hydroxide (Milk Of Mag) 30 ml DAILY PRN GTB CONSTIPATION; Start 12/30 at 15:30 Multivitamins Therapeutic (Theragran) 1 tab DAILY GTB ; Start 12/31/16 at 09:00 Ondansetron HCl (Zofran Tab) 4 mg Q6H PRN GTB NAUSEA AND/OR VOMITING; Start at 15:30 Phenobarbital (Luminal) 60 mg TID GTB ; Start 12/30/16 at 21:00 Eye Lubricant (Artificial Tears Oph) 1 drop Q4 BOTH EYES ; Start 12/30/16 at 18: 00 Zinc Sulfate (Zinc Sulfate) 220 mg DAILY GTB ; Start 12/31/16 at 09:00 Saccharomyces Boulardii (Florastor) 250 mg DAILY GTB ; Start 12/31/16 at 09:00 Levetiracetam (Keppra Liquid) 1,000 mg BID GTB ; Start 12/30/16 at 21:00 DANELLE BOSS Dec 30, 2016 17:25
[2016-12-30] MEDS: LORAZEPAM 0.5 MG TAB PO SCH (18:49)
--- NOTE | 2016-12-30 20:58 | RADRPT ---
Echocardiogram Report Patient Name: STEFANIA MCINTYRE E Gender: Male Date: 1955 Study Date: 30-Dec-2016 Mold Press Operator: Thompson [facility] Location: [facility] Ref. Physician: DANELLE BOSS Quality: Adequate Procedures: Transthoracic echocardiogram with complete 2D, M-Mode, and doppler examination. Indications: Shortness of breath. 2D/M Mode Doppler Measurement Value Normal Ranges Measurement Value Normal Ranges LVIDd 2D 3.6 3.5 - 5.6 cm AV Peak Deonte 1.1 m/sec LVIDs 2D 2.7 2.1 - 4.1 cm AV Peak PG 5.0 mmHg FS 2D 25.7 % AI Peak PG 22.0 mmHg LVPWd 2D 1.3 0.6 - 1.1 cm AI Peak [place]onte 2.3 m/sec IVSd 2D 1.3 0.6 - 1.1 cm AI PHT 796.0 msec IVS/LVPW 2D 1.0 LVOT Peak [place]onte 0.8 m/sec AoR Diam 2D 3.3 2.0 - 3.7 cm LVOT Peak PG 3.0 mmHg LA/Ao 2D 1 0 - 1 MV E Peak De[place] 0.6 m/sec EDV 2D 47.4 cm3 MV A Peak [place] 0.8 m/sec ESV 2D 19.5 cm3 MV E/A 0.8 LA Dimen 2D 2.6 2.3 - 4.0 cm MV Decel Time 102 msec MV E/A 0.8 TR Peak Deonte 2.8 m/sec TR Peak PG 30.0 mmHg RVSP 33.0 mmHg Findings Left Ventricle: Normal left ventricular systolic function. Normal left ventricular cavity size. Mild concentric left ventricular hypertrophy. Ejection fraction is visually estimated at 55 %. Abnormal Diastolic Function. Right Ventricle: Mild enlargement of right ventricle. Mild right ventricular hypokinesis. Left Atrium: The left atrium is normal in size. Right Atrium: The right atrium is normal in size. Mitral Valve: Mild mitral leaflet calcification. Mild mitral annular calcification. Mild mitral valve regurgitation. Aortic Valve: Aortic cusps appear mildly calcified. Mild aortic valve regurgitation. Tricuspid Valve: Normal appearance of the tricuspid valve. Estimated peak PA systolic pressure 33 mmHg. There is mild tricuspid regurgitation. Pulmonic Valve: Pulmonic valve not well visualized. There is mild pulmonic regurgitation. Pericardium: Normal pericardium with no significant pericardial effusion. Aorta: Normal aortic root. IVC: Normal size and normal respiratory collapse consistent with normal right atrial pressure. Conclusions 1.Normal left ventricular systolic function. Normal left ventricular cavity size. Mild concentric left ventricular hypertrophy. Ejection fraction is visually estimated at 55 %. Abnormal Diastolic Function. 2.Mild enlargement of right ventricle. Mild right ventricular hypokinesis. 3.Mild mitral leaflet calcification. Mild mitral annular calcification. Mild mitral valve regurgitation. 4.Aortic cusps appear mildly calcified. Mild aortic valve regurgitation. 5.Normal appearance of the tricuspid valve. Estimated peak PA systolic pressure 33 mmHg. There is mild tricuspid regurgitation. 6.Pulmonic valve not well visualized. There is mild pulmonic regurgitation. Electronically Signed By: Magnus Stein 30-Dec-2016 20:57:40 -0700 Patient Name: STEFANIA MCINTYRE E Study Date: 30-Dec-2016 [id number]
[2016-12-30] MEDS: ARTIFICIAL TEARS 15 ML OPH BOTH EYES SCH ×2 (21:00→21:28)
[2016-12-30] MEDS ORDERED: LEVETIRACETAM (100 MG/ML PO SYG) GTB SCH (21:00)
[2016-12-30] MEDS: LEVETIRACETAM (100 MG/ML) 5ML CUP GTB SCH (21:28)
[2016-12-30] MEDS: CEFEPIME 2GM/50 ML (PMX) 50 ML IVPB SCH (22:11)
[2016-12-30] MEDS: PHENOBARBITAL (4 MG/ML) 5ML CUP GTB SCH (22:11)
[2016-12-31] VITALS (23 sets, daily range): BP systolic 104–138; BP diastolic 61–91; PULSE 97–110; RESP 17–35
[2016-12-31] MEDS: VANCOMYCIN 1 GM in NS 250 ML IVPB SCH ×2 (00:24→12:39)
[2016-12-31] MEDS: ARTIFICIAL TEARS 15 ML OPH BOTH EYES SCH ×6 (00:24→20:33)
[2016-12-31] MEDS: LORAZEPAM 0.5 MG TAB PO SCH ×4 (00:24→17:25)
[2016-12-31] MEDS: morphine 2 MG INJ IV PRN ×6 (04:50→23:04)
[2016-12-31] MEDS: CEFEPIME 2GM/50 ML (PMX) 50 ML IVPB SCH ×3 (06:00→21:09)
[2016-12-31] MEDS: PANTOPRAZOLE 40 MG INJ IV SCH (06:16)
[2016-12-31 06:58] LABS: ALBUMIN 3.1 g/dl (3.3-4.9); BILIRUBIN,INDIRECT 0.1 mg/dl (0-1.1); BILIRUBIN,TOTAL 0.1 mg/dl (0.2-1.3); CALCIUM 9.2 mg/dl (8.4-10.2); CHOL/HDL RATIO 6.1 RATIO; CREATININE 0.91 mg/dl (0.61-1.24); MAGNESIUM 1.9 mg/dl (1.7-2.5); PHOSPHORUS 4.5 mg/dl (2.5-4.9); TOTAL PROTEIN 6.2 g/dl (6.1-8.1)
[2016-12-31 07:05] LABS: POTASSIUM 5.5 mmol/L (3.5-5.1)
[2016-12-31 07:06] LABS: T3 UPTAKE 40.6 % (23.5-40.5)
[2016-12-31 07:19] LABS: THYROID STIMULATING HORMONE 3.39 MIU/L (0.465-4.680)
--- NOTE | 2016-12-31 07:53 | CONS ---
Date/Time of Note Date/Time of Note DATE: 12/31/16 TIME: 07:46 Assessment/Plan Assessment/Plan Additional Assessment/Plan Brief note......Anoxic Encepalopathy secondary to cardiac arrest Trach Peg Respiratory Failure Discussed goals of care with first degree family members. At this time they are in agreement to change code to DNR and address comfort measures at [id number] [id number] Consultation Date/Type/Reason Admit Date/Time 12/30/16 Date of Consultation: Dec 30, 2016 Subjective hx not possible: pt non-verbal Neurologic: seizure Past Medical History Pt is non communicative Social History Alcohol Use: heavy (Previously) Smoking Status: Former smoker Drug Use: other (Reportedly abused benzodiazepine medication) Exam/Review of Systems Vital Signs Vitals Vital Signs Date Time Temp Pulse Resp B/P Pulse Ox O2 Delivery O2 Flow Rate FiO2 12/31/16 07:42 98.9 104 20 138/91 100 12/31/16 05:20 60 12/30/16 20:00 Bag Valve Mask Intake and Output 12/30/16 12/30/16 12/31/16 15:00 23:00 07:00 Intake Total 1300 ml 710 ml Output Total 2200 ml 750 ml Balance -900 ml -40 ml Exam Neurological: unresponsive Results Result Diagram: 12/30/16 1000 12/31/16 0549 Results 24 hrs Laboratory Tests Test 12/30/16 10:00 12/30/16 10:20 12/30/16 11:45 12/30/16 13:15 White Blood Count 15.6 H Red Blood Count 3.61 L Hemoglobin 10.8 L Hematocrit 33.8 L Mean Corpuscular Volume 93.6 Mean Corpuscular Hemoglobin 29.9 Mean Corpuscular Hemoglobin Concent 32.0 Red Cell Distribution Width 15.5 H Platelet Count 344 Mean Platelet Volume 11.2 H Neutrophils % 63.3 Lymphocytes % 26.6 Monocytes % 6.8 Eosinophils % 0.7 Basophils % 0.2 Nucleated Red Blood Cells % 0.0 Neutrophils # 9.9 H Lymphocytes # 4.2 H Monocytes # 1.1 H Eosinophils # 0.1 Basophils # 0.0 Nucleated Red Blood Cells # 0.0 Sodium Level 142 Potassium Level 4.0 Chloride Level 95 L Carbon Dioxide Level 30 Anion Gap 21 H Blood Urea Nitrogen 32 H Creatinine 1.02 Glucose Level 160 Lactic Acid Level 2.8 *H 2.6 *H Calcium Level 9.5 Total Bilirubin 0.2 Direct Bilirubin 0.00 Indirect Bilirubin 0.2 Aspartate Amino Transf (AST/SGOT) 234 H Alanine Aminotransferase (ALT/SGPT) 285 H Alkaline Phosphatase 157 H Troponin I 0.068 Total Protein 7.1 Albumin 3.4 Globulin 3.70 H Albumin/Globulin Ratio 0.91 Lipase 477 H Blood Gas Specimen Source Blood arterial Arterial Blood Date Drawn 12/30/2016 10:30:11 AM Arterial Blood pH (Temp corrected) 7.450 Arterial Blood pCO2 (Temp correct) 32.4 L Arterial Blood pO2 (Temp corrected) 63.5 L Arterial Blood HCO3 22.0 Arterial Blood Base Excess -1.3 Arterial Blood Oxygen Saturation 91.0 L Emmanuel Test ACCEPTAB Arterial Blood Gas Puncture Site Right Radial Arterial Blood Carboxyhemoglobin 0.3 Arterial Blood Methemoglobin 0.2 Blood Gas A-a O2 Differential 617.1 H Oxyhemoglobin Percent 90.5 L Total Hemoglobin 11.6 L Blood Gas Temperature 37.0 Blood Gas Respiration Rate 16.0 Blood Gas Actual Respiration Rate 38 Blood Gas Modality VENT - AC FiO2 100.0 Blood Gas Tidal Volume 600.0 Blood Gas Low PEEP Setting 5.0 Blood Gas Notified Whom M.D. Blood Gas Notified Time 12/30/2016 10:41:15 AM Urine Color YELLOW Urine Clarity CLEAR Urine pH 6.0 Urine Specific [place] 1.014 Urine Ketones NEGATIVE Urine Nitrite NEGATIVE Urine Bilirubin NEGATIVE Urine Urobilinogen NEGATIVE Urine Leukocyte Esterase NEGATIVE Urine Hemoglobin NEGATIVE Urine Glucose NEGATIVE Urine Total Protein NEGATIVE Test 12/31/16 05:49 Sodium Level 144 Potassium Level 5.5 H Chloride Level 104 Carbon Dioxide Level 23 Anion Gap 23 H Blood Urea Nitrogen 28 H Creatinine 0.91 Glucose Level 130 Hemoglobin A1c 6.3 H Calcium Level 9.2 Phosphorus Level 4.5 Magnesium Level 1.9 Total Bilirubin 0.1 L Direct Bilirubin 0.00 Indirect Bilirubin 0.1 Aspartate Amino Transf (AST/SGOT) 163 H Alanine Aminotransferase (ALT/SGPT) 292 H Alkaline Phosphatase 169 H Total Protein 6.2 Albumin 3.1 L Globulin 3.10 Albumin/Globulin Ratio 1.00 Triglycerides Level 159 H Cholesterol Level 177 LDL Cholesterol, Calculated 116 HDL Cholesterol 29 L Cholesterol/HDL Ratio 6.1 Thyroid Stimulating Hormone (TSH) 3.390 Free Thyroxine Index 3.37 Thyroxine (T4) 8.3 Triiodothyronine (T3) Uptake 40.6 H Medications Medications Current Medications Cefepime HCl (Maxipime 2gm/50 ml (Pmx)) 50 ml @ 100 mls/hr Q8 IVPB Last administered on 12/30/16 22:11; Admin Dose 100 MLS/HR; Start 12/30/16 at 22:00 Ondansetron HCl (Zofran Inj) 4 mg Q6H PRN IV NAUSEA AND/OR VOMITING; Start at 11:30 Acetaminophen (Tylenol Supp) 650 mg Q6H PRN [place] PAIN LEVEL 1-3 OR FEVER; Start 12/30/16 at 11:30 Morphine Sulfate (morphine) 2 mg Q4H PRN IV SEVERE PAIN LEVEL 7-10 Last administered on 12/31/16 04:50; Admin Dose 2 MG; Start 12/30/16 at 11:30 Docusate Sodium (Colace) 100 mg Q12H PRN PO CONSTIPATION; Start 12/30/16 at 11: 30 Magnesium Hydroxide (Milk Of Mag) 30 ml DAILY PRN PO CONSTIPATION; Start at 11:30 Bisacodyl (Dulcolax Supp) 10 mg DAILY PRN [place] CONSTIPATION; Start 12/30/16 at 11 :30 Pantoprazole 40 mg 40 mg DAILY@06 IV Last administered on 12/31/16 06:16; Admin Dose 40 MG; Start 12/31/16 at 06:00 Vancomycin HCl (Vancocin) 250 ml @ 125 mls/hr Q12H IVPB Last administered on 00:24; Admin Dose 125 MLS/HR; Start 12/31/16 at 00:00 Ascorbic Acid (Vitamin C) 500 mg DAILY GTB ; Start 12/31/16 at 09:00 Bisacodyl (Dulcolax Supp) 10 mg DAILY PRN [place] CONSTIPATION; Start 12/30/16 at 15 :30 Enalapril Maleate (Vasotec) 2.5 mg Q6H PRN GTB SBP ABOVE 160; Start 12/30/16 at 15:30 Furosemide (Lasix) 40 mg DAILY PEG ; Start 12/31/16 at 09:00 Lorazepam (Ativan) 0.5 mg Q6 PO Last administered on 12/31/16 06:16; Admin Dose 0.5 MG; Start 12/30/16 at 18:00 Magnesium Hydroxide (Milk Of Mag) 30 ml DAILY PRN GTB CONSTIPATION; Start 12/30 at 15:30 Multivitamins Therapeutic (Theragran) 1 tab DAILY GTB ; Start 12/31/16 at 09:00 Ondansetron HCl (Zofran Tab) 4 mg Q6H PRN GTB NAUSEA AND/OR VOMITING; Start at 15:30 Phenobarbital (Luminal) 60 mg TID GTB Last administered on 12/30/16 22:11; Admin Dose 60 MG; Start 12/30/16 at 21:00 Eye Lubricant (Artificial Tears Oph) 1 drop Q4 BOTH EYES Last administered on 06:16; Admin Dose 1 DROP; Start 12/30/16 at 18:00 Zinc Sulfate (Zinc Sulfate) 220 mg DAILY GTB ; Start 12/31/16 at 09:00 Saccharomyces Boulardii (Florastor) 250 mg DAILY GTB ; Start 12/31/16 at 09:00 Levetiracetam (Keppra Liquid) 1,000 mg BID GTB Last administered on 12/30/16 21:28; Admin Dose 1,000 MG; Start 12/30/16 at 21:00 LINCOLN SHELDON Dec 31, 2016 07:53
[2016-12-31] MEDS: LEVETIRACETAM (100 MG/ML) 5ML CUP GTB SCH ×2 (08:53→20:33)
[2016-12-31] MEDS: PHENOBARBITAL (4 MG/ML) 5ML CUP GTB SCH ×3 (08:54→20:33)
[2016-12-31] MEDS ORDERED: ZINC SULFATE 220 MG CAP GTB SCH (09:00)
[2016-12-31] MEDS ORDERED: MULTIVITAMINS THERAPEUTIC TAB GTB SCH (09:00)
[2016-12-31] MEDS ORDERED: SACCHAROMYCES BOULARDII 250 MG CAP GTB SCH (09:00)
[2016-12-31] MEDS ORDERED: ASCORBIC ACID 500 MG TAB GTB SCH (09:00)
[2016-12-31] MEDS ORDERED: FUROSEMIDE 40 MG TAB PEG SCH (09:00)
[2016-12-31] MEDS ORDERED: NA POLYST SULFON 15 GM/60 ML BTL PO ONE (10:30)
[2016-12-31 10:49] LABS: ADD SCAN DIFF NO
[2016-12-31 10:52] LABS: ABNORMAL IP MESSAGE 1; BASOPHIL # 0.1 10^3/ul (0.0-0.1); BASOPHILS % 0.5 % (0.0-2.0); EOSINOPHILS # 0.1 10^3/ul (0.0-0.5); EOSINOPHILS % 0.5 % (0.0-7.0); HEMATOCRIT 34.6 % (42.0-52.0); HEMOGLOBIN 10.8 g/dl (14.0-18.0); LYMPHOCYTES # 2.9 10^3/ul (0.8-2.9); LYMPHOCYTES % 17.6 % (15.0-51.0); MEAN CORPUSCULAR HEMOGLOBIN 30.2 pg (29.0-33.0); MEAN CORPUSCULAR HGB CONC 31.2 g/dl (32.0-37.0); MEAN CORPUSCULAR VOLUME 96.6 fl (82.0-101.0); MEAN PLATELET VOLUME 11.8 fl (7.4-10.4); MONOCYTE # 1.7 10^3/ul (0.3-0.9); MONOCYTES % 10.2 % (0.0-11.0); NEUTROPHIL # 10.6 10^3/ul (1.6-7.5); NEUTROPHILS % 65.1 % (39.0-77.0); PLATELET COUNT 365 10^3/UL (140-415); RED BLOOD COUNT 3.58 10^6/ul (4.70-6.10); RED CELL DISTRIBUTION WIDTH 15.9 % (11.5-14.5); WHITE BLOOD COUNT 16.3 10^3/ul (4.8-10.8)
--- NOTE | 2016-12-31 10:53 | PN ---
Date/Time of Note Date/Time of Note DATE: 12/31/16 TIME: 10:48 Assessment/Plan VTE Prophylaxis VTE Prophylaxis Intervention: SCD's Lines/Catheters IV [facility] Type [facility]from [facility] Saline Lock Urinary Cath still in place: Yes Reason Cath still needed: other (indicate) (montior I&O) Assessment/Plan Chief Complaint/Hosp Course Assessment and plan 1. Acute respiratory failure. Etiology possible aspiration versus seizure. Arabic Professor following. Continue on ventilation. Continue with pulmonary hygiene. 2. Seizures. Likely secondary to previous anoxic brain injury. Recent CT scan of the head did show relatively extensive findings involving the bilateral cerebral hemispheres compatible with a global hypoxic ischemic injury. Patient of note already has a tracheostomy in place. He is currently on mechanical ventilation. Neurologist following. Continue on barbital as well as Keppra for now. EEG result pending 3. Recent cardiac arrest. EF at 55% with abnormal diastolic dysfunction. Continue optimization with cardiovascular medications 4. Suspect sepsis. Etiology unknown at this time. ID consult is following. On broad-spectrum antibiotics for now. . Lactic acidosis possibly from seizure. 5. Leukocytosis suspect secondary to sepsis versus seizures. Antipyretics as needed. Continue with antibiotic regimen. 6. History of essential hypertension. Continue antihypertensives and adjust as needed Disposition and plan: Noted with agonal breathing. Follow-up on x-ray as well as ABG. Prognosis poor. Palliative care physician following. DNR now. We will follow-up with family for goals of care Discussed plan of care with Dr. Camacho Problems: Subjective 24 Hr Interval Summary Free Text/Dictation Seen tachypneic with agonal breathing. Family at bedside. Exam/Review of Systems Vital Signs Vitals Vital Signs Date Time Temp Pulse Resp B/P Pulse Ox O2 Delivery O2 Flow Rate FiO2 12/31/16 09:10 98 35 99 75 12/31/16 07:42 98.9 138/91 12/30/16 20:00 Bag Valve Mask Intake and Output 12/30/16 12/30/16 12/31/16 15:00 23:00 07:00 Intake Total 1300 ml 710 ml Output Total 2200 ml 750 ml Balance -900 ml -40 ml Exam Constitutional: non-verbal, other (Intubated on trach) Eyes: No icteric Neck: other (Tracheostomy in place) Respiratory: respirations (Minimally diminished lung bases) Cardiovascular: other tachycardic Gastrointestinal: other (PEG tube in place), soft Musculoskeletal: other (Noted with some foot drop), swelling (Noted with minimal edema bilateral lower extremity) Neurological: other , unresponsive Results Result Diagram: 12/30/16 1000 12/31/16 0549 Results 24 hrs Laboratory Tests Test 12/30/16 11:45 12/30/16 13:15 12/31/16 05:49 Urine Color YELLOW Urine Clarity CLEAR Urine pH 6.0 Urine Specific [place] 1.014 Urine Ketones NEGATIVE Urine Nitrite NEGATIVE Urine Bilirubin NEGATIVE Urine Urobilinogen NEGATIVE Urine Leukocyte Esterase NEGATIVE Urine Hemoglobin NEGATIVE Urine Glucose NEGATIVE Urine Total Protein NEGATIVE Lactic Acid Level 2.6 *H Sodium Level 144 Potassium Level 5.5 H Chloride Level 104 Carbon Dioxide Level 23 Anion Gap 23 H Blood Urea Nitrogen 28 H Creatinine 0.91 Glucose Level 130 Hemoglobin A1c 6.3 H Calcium Level 9.2 Phosphorus Level 4.5 Magnesium Level 1.9 Total Bilirubin 0.1 L Direct Bilirubin 0.00 Indirect Bilirubin 0.1 Aspartate Amino Transf (AST/SGOT) 163 H Alanine Aminotransferase (ALT/SGPT) 292 H Alkaline Phosphatase 169 H Total Protein 6.2 Albumin 3.1 L Globulin 3.10 Albumin/Globulin Ratio 1.00 Triglycerides Level 159 H Cholesterol Level 177 LDL Cholesterol, Calculated 116 HDL Cholesterol 29 L Cholesterol/HDL Ratio 6.1 Thyroid Stimulating Hormone (TSH) 3.390 Free Thyroxine Index 3.37 Thyroxine (T4) 8.3 Triiodothyronine (T3) Uptake 40.6 H Medications Medications Current Medications Cefepime HCl (Maxipime 2gm/50 ml (Pmx)) 50 ml @ 100 mls/hr Q8 IVPB Last administered on 12/30/16 22:11; Admin Dose 100 MLS/HR; Start 12/30/16 at 22:00 Ondansetron HCl (Zofran Inj) 4 mg Q6H PRN IV NAUSEA AND/OR VOMITING; Start at 11:30 Acetaminophen (Tylenol Supp) 650 mg Q6H PRN [place] PAIN LEVEL 1-3 OR FEVER; Start 12/30/16 at 11:30 Morphine Sulfate (morphine) 2 mg Q4H PRN IV SEVERE PAIN LEVEL 7-10 Last administered on 12/31/16 10:30; Admin Dose 2 MG; Start 12/30/16 at 11:30 Docusate Sodium (Colace) 100 mg Q12H PRN PO CONSTIPATION; Start 12/30/16 at 11: 30 Magnesium Hydroxide (Milk Of Mag) 30 ml DAILY PRN PO CONSTIPATION; Start at 11:30 Bisacodyl (Dulcolax Supp) 10 mg DAILY PRN [place] CONSTIPATION; Start 12/30/16 at 11 :30 Pantoprazole 40 mg 40 mg DAILY@06 IV Last administered on 12/31/16 06:16; Admin Dose 40 MG; Start 12/31/16 at 06:00 Vancomycin HCl (Vancocin) 250 ml @ 125 mls/hr Q12H IVPB Last administered on 00:24; Admin Dose 125 MLS/HR; Start 12/31/16 at 00:00 Ascorbic Acid (Vitamin C) 500 mg DAILY GTB Last administered on 12/31/16 08:55 ; Admin Dose 500 MG; Start 12/31/16 at 09:00 Bisacodyl (Dulcolax Supp) 10 mg DAILY PRN [place] CONSTIPATION; Start 12/30/16 at 15 :30 Enalapril Maleate (Vasotec) 2.5 mg Q6H PRN GTB SBP ABOVE 160; Start 12/30/16 at 15:30 Furosemide (Lasix) 40 mg DAILY PEG Last administered on 12/31/16 08:55; Admin Dose 40 MG; Start 12/31/16 at 09:00 Lorazepam (Ativan) 0.5 mg Q6 PO Last administered on 12/31/16 06:16; Admin Dose 0.5 MG; Start 12/30/16 at 18:00 Magnesium Hydroxide (Milk Of Mag) 30 ml DAILY PRN GTB CONSTIPATION; Start 12/30 at 15:30 Multivitamins Therapeutic (Theragran) 1 tab DAILY GTB Last administered on 12/31 08:55; Admin Dose 1 TAB; Start 12/31/16 at 09:00 Ondansetron HCl (Zofran Tab) 4 mg Q6H PRN GTB NAUSEA AND/OR VOMITING; Start at 15:30 Phenobarbital (Luminal) 60 mg TID GTB Last administered on 12/31/16 08:54; Admin Dose 60 MG; Start 12/30/16 at 21:00 Eye Lubricant (Artificial Tears Oph) 1 drop Q4 BOTH EYES Last administered on 08:52; Admin Dose 1 DROP; Start 12/30/16 at 18:00 Zinc Sulfate (Zinc Sulfate) 220 mg DAILY GTB Last administered on 12/31/16 08: 54; Admin Dose 220 MG; Start 12/31/16 at 09:00 Saccharomyces Boulardii (Florastor) 250 mg DAILY GTB Last administered on 08:54; Admin Dose 250 MG; Start 12/31/16 at 09:00 Levetiracetam (Keppra Liquid) 1,000 mg BID GTB Last administered on 12/31/16 08:53; Admin Dose 1,000 MG; Start 12/30/16 at 21:00 DANELLE BOSS Dec 31, 2016 10:52
[2016-12-31 11:04] LABS: AADO2 Arterial 458.9 mmHg (7.0-24.0); Allen Test ACCEPTAB; Arterial Base Excess -0.9 mmol/L (-3.0-3); Arterial COHb 0.2 % (0.0-3.0); Arterial Fraction of Oxyhgb 98.5 % (93.0-99.0); Arterial HCO3 22.4 mmol/L (22.0-26.0); Arterial MetHb 0.2 % (0.0-1.5); MODE VENT - AC
--- NOTE | 2016-12-31 11:40 | CONS ---
Date/Time of Note Date/Time of Note DATE: 12/31/16 TIME: 11:37 Consult Date/Type/Reason Admit Date/Time Dec 30, 2016 at 11:38 Initial Consult Date 12/30/16 Type of Consultation: Neurology Reason for Consultation anoxic injury Ordering Provider: DANELLE BOSS Subjective CTH showed extensive bilateral cerebral hemisphere changes c/w global hypoxic injury no seizures family awaiting further members to decide GOC Objective Vital Signs Date Time Temp Pulse Resp B/P Pulse Ox O2 Delivery O2 Flow Rate FiO2 12/31/16 11:10 108 26 98 100 12/31/16 07:42 98.9 138/91 12/30/16 20:00 Bag Valve Mask Intake and Output 12/30/16 12/30/16 12/31/16 15:00 23:00 07:00 Intake Total 1300 ml 710 ml Output Total 2200 ml 750 ml Balance -900 ml -40 ml Exam tracheostomy unresponsive not following commands CN: sluggish, doll's minimal, corneals intact Motor: no withdrawal of extremities Results/Medications Result Diagram: 12/31/16 0549 12/31/16 0549 Results 24 hrs Laboratory Tests Test 12/30/16 11:45 12/30/16 13:15 12/31/16 05:49 12/31/16 10:16 Urine Color YELLOW Urine Clarity CLEAR Urine pH 6.0 Urine Specific [place] 1.014 Urine Ketones NEGATIVE Urine Nitrite NEGATIVE Urine Bilirubin NEGATIVE Urine Urobilinogen NEGATIVE Urine Leukocyte Esterase NEGATIVE Urine Hemoglobin NEGATIVE Urine Glucose NEGATIVE Urine Total Protein NEGATIVE Lactic Acid Level 2.6 *H White Blood Count 16.3 H Red Blood Count 3.58 L Hemoglobin 10.8 L Hematocrit 34.6 L Mean Corpuscular Volume 96.6 Mean Corpuscular Hemoglobin 30.2 Mean Corpuscular Hemoglobin Concent 31.2 L Red Cell Distribution Width 15.9 H Platelet Count 365 Mean Platelet Volume 11.8 H Neutrophils % 65.1 Lymphocytes % 17.6 Monocytes % 10.2 Eosinophils % 0.5 Basophils % 0.5 Neutrophils # 10.6 H Lymphocytes # 2.9 Monocytes # 1.7 H Eosinophils # 0.1 Basophils # 0.1 Nucleated Red Blood Cells # 0.0 Sodium Level 144 Potassium Level 5.5 H Chloride Level 104 Carbon Dioxide Level 23 Anion Gap 23 H Blood Urea Nitrogen 28 H Creatinine 0.91 Glucose Level 130 Hemoglobin A1c 6.3 H Calcium Level 9.2 Phosphorus Level 4.5 Magnesium Level 1.9 Total Bilirubin 0.1 L Direct Bilirubin 0.00 Indirect Bilirubin 0.1 Aspartate Amino Transf (AST/SGOT) 163 H Alanine Aminotransferase (ALT/SGPT) 292 H Alkaline Phosphatase 169 H Total Protein 6.2 Albumin 3.1 L Globulin 3.10 Albumin/Globulin Ratio 1.00 Triglycerides Level 159 H Cholesterol Level 177 LDL Cholesterol, Calculated 116 HDL Cholesterol 29 L Cholesterol/HDL Ratio 6.1 Lipase 301 H Thyroid Stimulating Hormone (TSH) 3.390 Free Thyroxine Index 3.37 Thyroxine (T4) 8.3 Triiodothyronine (T3) Uptake 40.6 H Blood Gas Specimen Source Blood arterial Arterial Blood Date Drawn 12/31/2016 10:50:43 AM Arterial Blood pH (Temp corrected) 7.455 H Arterial Blood pCO2 (Temp correct) 32.6 L Arterial Blood pO2 (Temp corrected) 221.5 H Arterial Blood HCO3 22.4 Arterial Blood Base Excess -0.9 Arterial Blood Oxygen Saturation 98.9 H Emmanuel Test ACCEPTAB Arterial Blood Gas Puncture Site Right Radial Arterial Blood Carboxyhemoglobin 0.2 Arterial Blood Methemoglobin 0.2 Blood Gas A-a O2 Differential 458.9 H Oxyhemoglobin Percent 98.5 Total Hemoglobin 11.0 L Blood Gas Temperature 37.0 Blood Gas Respiration Rate 16.0 Blood Gas Actual Respiration Rate 28 Blood Gas Modality VENT - AC FiO2 100.0 Blood Gas Tidal Volume 600.0 Blood Gas Low PEEP Setting 5.0 Blood Gas Notified Whom M.D. Blood Gas Notified Time 12/31/2016 11:03:59 AM Medications Current Medications Cefepime HCl (Maxipime 2gm/50 ml (Pmx)) 50 ml @ 100 mls/hr Q8 IVPB Last administered on 12/30/16 22:11; Admin Dose 100 MLS/HR; Start 12/30/16 at 22:00 Ondansetron HCl (Zofran Inj) 4 mg Q6H PRN IV NAUSEA AND/OR VOMITING; Start at 11:30 Acetaminophen (Tylenol Supp) 650 mg Q6H PRN [place] PAIN LEVEL 1-3 OR FEVER; Start 12/30/16 at 11:30 Morphine Sulfate (morphine) 2 mg Q4H PRN IV SEVERE PAIN LEVEL 7-10 Last administered on 12/31/16 10:30; Admin Dose 2 MG; Start 12/30/16 at 11:30 Docusate Sodium (Colace) 100 mg Q12H PRN PO CONSTIPATION; Start 12/30/16 at 11: 30 Magnesium Hydroxide (Milk Of Mag) 30 ml DAILY PRN PO CONSTIPATION; Start at 11:30 Bisacodyl (Dulcolax Supp) 10 mg DAILY PRN [place] CONSTIPATION; Start 12/30/16 at 11 :30 Pantoprazole 40 mg 40 mg DAILY@06 IV Last administered on 12/31/16 06:16; Admin Dose 40 MG; Start 12/31/16 at 06:00 Vancomycin HCl (Vancocin) 250 ml @ 125 mls/hr Q12H IVPB Last administered on 00:24; Admin Dose 125 MLS/HR; Start 12/31/16 at 00:00 Ascorbic Acid (Vitamin C) 500 mg DAILY GTB Last administered on 12/31/16 08:55 ; Admin Dose 500 MG; Start 12/31/16 at 09:00 Bisacodyl (Dulcolax Supp) 10 mg DAILY PRN [place] CONSTIPATION; Start 12/30/16 at 15 :30 Enalapril Maleate (Vasotec) 2.5 mg Q6H PRN GTB SBP ABOVE 160; Start 12/30/16 at 15:30 Furosemide (Lasix) 40 mg DAILY PEG Last administered on 12/31/16 08:55; Admin Dose 40 MG; Start 12/31/16 at 09:00 Lorazepam (Ativan) 0.5 mg Q6 PO Last administered on 12/31/16 06:16; Admin Dose 0.5 MG; Start 12/30/16 at 18:00 Magnesium Hydroxide (Milk Of Mag) 30 ml DAILY PRN GTB CONSTIPATION; Start 12/30 at 15:30 Multivitamins Therapeutic (Theragran) 1 tab DAILY GTB Last administered on 12/31 08:55; Admin Dose 1 TAB; Start 12/31/16 at 09:00 Ondansetron HCl (Zofran Tab) 4 mg Q6H PRN GTB NAUSEA AND/OR VOMITING; Start at 15:30 Phenobarbital (Luminal) 60 mg TID GTB Last administered on 12/31/16 08:54; Admin Dose 60 MG; Start 12/30/16 at 21:00 Eye Lubricant (Artificial Tears Oph) 1 drop Q4 BOTH EYES Last administered on 08:52; Admin Dose 1 DROP; Start 12/30/16 at 18:00 Zinc Sulfate (Zinc Sulfate) 220 mg DAILY GTB Last administered on 12/31/16 08: 54; Admin Dose 220 MG; Start 12/31/16 at 09:00 Saccharomyces Boulardii (Florastor) 250 mg DAILY GTB Last administered on 08:54; Admin Dose 250 MG; Start 12/31/16 at 09:00 Levetiracetam (Keppra Liquid) 1,000 mg BID GTB Last administered on 12/31/16 08:53; Admin Dose 1,000 MG; Start 12/30/16 at 21:00 Assessment/Plan Chief Complaint/Hosp Course 61 yo male with history of cardiac arrest with anoxic brain injury, post anoxic seizures admitted with increasing SOB. -continue current dose of AED as documented in NH on Keppra and Phenobarbital -check PHB levels to ensure therapeutic -ativan 0.1 mg/kg for further seizure activity -seizure precautions -Head CT without contrast confirms extensive global hypoxic injury poor prognosis for a meaningful neurologic recover, family awaiting further members for GOC discussion planned for comfort measures, i will follow up again tomorrow Problems: DEMETRICE CORREA MD Dec 31, 2016 11:40
--- NOTE | 2016-12-31 14:28 | RADRPT ---
PROCEDURE: XR Chest. CLINICAL INDICATION: dyspnea TECHNIQUE: Single frontal view of the chest was obtained COMPARISON: Chest x-ray 12/30/2016 FINDINGS: Tracheostomy tube remains in adequate position. The cardiomediastinal silhouette is within normal limits. No pneumothorax, pleural effusion, or parenchymal consolidation is identified. There is no evidence of pulmonary vascular congestion. There are degenerative changes of the visualized spine. There is mild dextro scoliosis of the thora cic spine. IMPRESSION: No evidence of acute cardiopulmonary process. RPTAT: PP Physician Nicholas Date Time Electronically viewed and signed by Physician Nicholas on 12/31/2016 14:28 RC/
--- NOTE | 2016-12-31 15:46 | CONS ---
Date/Time of Note Date/Time of Note DATE: 12/31/16 TIME: 15:45 Assessment/Plan Assessment/Plan Chief Complaint/Hosp Course No acute changes overnight patient is noncommunicative lying comfortably in bed family at bedside Temperature 98.7 pulse 112 respirations 20 blood pressure 113/68 saturation 100 on FiO2 of 40 WBC 16.3 H&H 10.8 and 34.6 platelets 365 no shift, no bands BUN 28 creatinine 0.91 AST 163 ALT 292 alk phos 169 Chest x-ray this morning revealed no evidence of acute cardiopulmonary process Indwelling: Trach PEG Mars Antimicrobials: Vancomycin cefepime Physical examination: Well-developed, chronically appearing elderly man. The patient is in no distress. Head atraumatic, normocephalic. Sclera nonicteric. Bugle mucosa dry. Neck is supple, tracheostomy present. Chest rise symmetrical breath sounds clear. Heart: S1-S2. Abdomen soft, bowel tones present. Extremities without cyanosis. Assessment: 1. Leukocytosis with lactic acidosis. 2. Acute on chronic respiratory failure, status post shortness of breath possibly mucus plugging 3. Anoxic brain injury 4. Seizure disorder 5. Dysphasia Plan: Patient remains hemodynamically stable, followed by multiple consultants, pending final cultures, continue on current antibiotics for now. Discussed with family at bedside Problems: Consultation Date/Type/Reason Admit Date/Time Dec 30, 2016 at 11:38 Initial Consult Date 12/30/16 Type of Consultation: id Referring Provider: DANELLE BOSS Exam/Review of Systems Vital Signs Vitals Vital Signs Date Time Temp Pulse Resp B/P Pulse Ox O2 Delivery O2 Flow Rate FiO2 12/31/16 15:15 98.7 112 20 113/68 100 12/31/16 15:10 100 12/30/16 20:00 Bag Valve Mask Intake and Output 12/30/16 12/30/16 12/31/16 15:00 23:00 07:00 Intake Total 1300 ml 710 ml Output Total 2200 ml 750 ml Balance -900 ml -40 ml Results Result Diagram: 12/31/16 0549 12/31/16 0549 Results 24 hrs Laboratory Tests Test 12/31/16 05:49 12/31/16 10:16 White Blood Count 16.3 H Red Blood Count 3.58 L Hemoglobin 10.8 L Hematocrit 34.6 L Mean Corpuscular Volume 96.6 Mean Corpuscular Hemoglobin 30.2 Mean Corpuscular Hemoglobin Concent 31.2 L Red Cell Distribution Width 15.9 H Platelet Count 365 Mean Platelet Volume 11.8 H Neutrophils % 65.1 Lymphocytes % 17.6 Monocytes % 10.2 Eosinophils % 0.5 Basophils % 0.5 Neutrophils # 10.6 H Lymphocytes # 2.9 Monocytes # 1.7 H Eosinophils # 0.1 Basophils # 0.1 Nucleated Red Blood Cells # 0.0 Sodium Level 144 Potassium Level 5.5 H Chloride Level 104 Carbon Dioxide Level 23 Anion Gap 23 H Blood Urea Nitrogen 28 H Creatinine 0.91 Glucose Level 130 Hemoglobin A1c 6.3 H Calcium Level 9.2 Phosphorus Level 4.5 Magnesium Level 1.9 Total Bilirubin 0.1 L Direct Bilirubin 0.00 Indirect Bilirubin 0.1 Aspartate Amino Transf (AST/SGOT) 163 H Alanine Aminotransferase (ALT/SGPT) 292 H Alkaline Phosphatase 169 H Total Protein 6.2 Albumin 3.1 L Globulin 3.10 Albumin/Globulin Ratio 1.00 Triglycerides Level 159 H Cholesterol Level 177 LDL Cholesterol, Calculated 116 HDL Cholesterol 29 L Cholesterol/HDL Ratio 6.1 Lipase 301 H Thyroid Stimulating Hormone (TSH) 3.390 Free Thyroxine Index 3.37 Thyroxine (T4) 8.3 Triiodothyronine (T3) Uptake 40.6 H Blood Gas Specimen Source Blood arterial Arterial Blood Date Drawn 12/31/2016 10:50:43 AM Arterial Blood pH (Temp corrected) 7.455 H Arterial Blood pCO2 (Temp correct) 32.6 L Arterial Blood pO2 (Temp corrected) 221.5 H Arterial Blood HCO3 22.4 Arterial Blood Base Excess -0.9 Arterial Blood Oxygen Saturation 98.9 H Emmanuel Test ACCEPTAB Arterial Blood Gas Puncture Site Right Radial Arterial Blood Carboxyhemoglobin 0.2 Arterial Blood Methemoglobin 0.2 Blood Gas A-a O2 Differential 458.9 H Oxyhemoglobin Percent 98.5 Total Hemoglobin 11.0 L Blood Gas Temperature 37.0 Blood Gas Respiration Rate 16.0 Blood Gas Actual Respiration Rate 28 Blood Gas Modality VENT - AC FiO2 100.0 Blood Gas Tidal Volume 600.0 Blood Gas Low PEEP Setting 5.0 Blood Gas Notified Whom MSpeedy Blood Gas Notified Time 12/31/2016 11:03:59 AM Medications Medications Current Medications Cefepime HCl (Maxipime 2gm/50 ml (Pmx)) 50 ml @ 100 mls/hr Q8 IVPB Last administered on 12/31/16 14:32; Admin Dose 100 MLS/HR; Start 12/30/16 at 22:00 Ondansetron HCl (Zofran Inj) 4 mg Q6H PRN IV NAUSEA AND/OR VOMITING; Start at 11:30 Acetaminophen (Tylenol Supp) 650 mg Q6H PRN [place] PAIN LEVEL 1-3 OR FEVER; Start 12/30/16 at 11:30 Morphine Sulfate (morphine) 2 mg Q4H PRN IV SEVERE PAIN LEVEL 7-10 Last administered on 12/31/16 14:33; Admin Dose 2 MG; Start 12/30/16 at 11:30 Docusate Sodium (Colace) 100 mg Q12H PRN PO CONSTIPATION; Start 12/30/16 at 11: 30 Magnesium Hydroxide (Milk Of Mag) 30 ml DAILY PRN PO CONSTIPATION; Start at 11:30 Bisacodyl (Dulcolax Supp) 10 mg DAILY PRN [place] CONSTIPATION; Start 12/30/16 at 11 :30 Pantoprazole 40 mg 40 mg DAILY@06 IV Last administered on 12/31/16 06:16; Admin Dose 40 MG; Start 12/31/16 at 06:00 Vancomycin HCl (Vancocin) 250 ml @ 125 mls/hr Q12H IVPB Last administered on 12:39; Admin Dose 125 MLS/HR; Start 12/31/16 at 00:00 Ascorbic Acid (Vitamin C) 500 mg DAILY GTB Last administered on 12/31/16 08:55 ; Admin Dose 500 MG; Start 12/31/16 at 09:00 Bisacodyl (Dulcolax Supp) 10 mg DAILY PRN [place] CONSTIPATION; Start 12/30/16 at 15 :30 Enalapril Maleate (Vasotec) 2.5 mg Q6H PRN GTB SBP ABOVE 160; Start 12/30/16 at 15:30 Furosemide (Lasix) 40 mg DAILY PEG Last administered on 12/31/16 08:55; Admin Dose 40 MG; Start 12/31/16 at 09:00 Lorazepam (Ativan) 0.5 mg Q6 PO Last administered on 12/31/16 12:38; Admin Dose 0.5 MG; Start 12/30/16 at 18:00 Magnesium Hydroxide (Milk Of Mag) 30 ml DAILY PRN GTB CONSTIPATION; Start 12/30 at 15:30 Multivitamins Therapeutic (Theragran) 1 tab DAILY GTB Last administered on 12/31 08:55; Admin Dose 1 TAB; Start 12/31/16 at 09:00 Ondansetron HCl (Zofran Tab) 4 mg Q6H PRN GTB NAUSEA AND/OR VOMITING; Start at 15:30 Phenobarbital (Luminal) 60 mg TID GTB Last administered on 12/31/16 12:38; Admin Dose 60 MG; Start 12/30/16 at 21:00 Eye Lubricant (Artificial Tears Oph) 1 drop Q4 BOTH EYES Last administered on 12:37; Admin Dose 1 DROP; Start 12/30/16 at 18:00 Zinc Sulfate (Zinc Sulfate) 220 mg DAILY GTB Last administered on 12/31/16 08: 54; Admin Dose 220 MG; Start 12/31/16 at 09:00 Saccharomyces Boulardii (Florastor) 250 mg DAILY GTB Last administered on 08:54; Admin Dose 250 MG; Start 12/31/16 at 09:00 Levetiracetam (Keppra Liquid) 1,000 mg BID GTB Last administered on 12/31/16 08:53; Admin Dose 1,000 MG; Start 12/30/16 at 21:00 Miscellaneous Information (*Rx Drug Level Order Reminder*) 1 ONCE ONCE XX ; Start 12/31/16 at 23:00; Stop 12/31/16 at 23:01 OVIDIO FITZPATRICK NP Dec 31, 2016 15:45
[2016-12-31] MEDS ORDERED: LORAZEPAM 2 MG INJ IV ONE (21:30)
[2017-01-01] VITALS (12 sets, daily range): BP systolic 112–123; BP diastolic 58–73; PULSE 0–119; RESP 20–31
[2017-01-01] MEDS ORDERED: morphine (DRIP) 100 MG/100 ML 100 ML IV SCH
[2017-01-01] MEDS: LORAZEPAM 0.5 MG TAB PO SCH ×2 (00:19→05:47)
[2017-01-01] MEDS: ARTIFICIAL TEARS 15 ML OPH BOTH EYES SCH ×2 (00:26→05:46)
[2017-01-01] MEDS: PANTOPRAZOLE 40 MG INJ IV SCH (05:47)
[2017-01-01] MEDS: CEFEPIME 2GM/50 ML (PMX) 50 ML IVPB SCH (06:54)
[2017-01-01] MEDS ORDERED: VANCOMYCIN 1.25 GM in SOD CHLORIDE 0.9% 250 ML IVPB SCH (08:00)
--- NOTE | 2017-01-01 08:44 | QN ---
Documentation Comment Patient DNR. It was reported time of 07. CAll made out to MD (Dr. Cameron) . PICCOLOIST to assess patient. Patient was unresponsive to verbal and painful stimulus. No spontaneous breathing and no heart sounds were auscultated and patient was without pulse. Corneal reflex not present. Patient pronounced at 0838 on January 01, 2017. Family at bedside at the time and made aware. DANELLE BOSS Jan 01, 2017 08:44
--- NOTE | 2017-01-01 09:09 | CONS ---
Date/Time of Note Date/Time of Note DATE: 01/01/17 TIME: 09:07 Consult Date/Type/Reason Admit Date/Time Dec 30, 2016 at 11:38 Initial Consult Date 12/30/16 Type of Consultation: Palliative care Ordering Provider: DANELLE BOSS Objective Vital Signs Date Time Temp Pulse Resp B/P Pulse Ox O2 Delivery O2 Flow Rate FiO2 01/01/17 08:36 112 01/01/17 06:00 99.3 28 112/58 98 Mechanical Ventilator 01/01/17 05:20 100 Intake and Output 12/31/16 12/31/16 01/01/17 15:00 23:00 07:00 Intake Total 950 ml 1157 ml Output Total 400 ml 550 ml Balance 550 ml 607 ml Results/Medications Result Diagram: 12/31/16 0549 12/31/16 0549 Results 24 hrs Laboratory Tests Test 12/31/16 10:16 12/31/16 23:17 Blood Gas Specimen Source Blood arterial Arterial Blood Date Drawn 12/31/2016 10:50:43 AM Arterial Blood pH (Temp corrected) 7.455 H Arterial Blood pCO2 (Temp correct) 32.6 L Arterial Blood pO2 (Temp corrected) 221.5 H Arterial Blood HCO3 22.4 Arterial Blood Base Excess -0.9 Arterial Blood Oxygen Saturation 98.9 H Emmanuel Test ACCEPTAB Arterial Blood Gas Puncture Site Right Radial Arterial Blood Carboxyhemoglobin 0.2 Arterial Blood Methemoglobin 0.2 Blood Gas A-a O2 Differential 458.9 H Oxyhemoglobin Percent 98.5 Total Hemoglobin 11.0 L Blood Gas Temperature 37.0 Blood Gas Respiration Rate 16.0 Blood Gas Actual Respiration Rate 28 Blood Gas Modality VENT - AC FiO2 100.0 Blood Gas Tidal Volume 600.0 Blood Gas Low PEEP Setting 5.0 Blood Gas Notified Whom M.D. Blood Gas Notified Time 12/31/2016 11:03:59 AM Vancomycin Level Trough 21.3 *H Medications Current Medications Cefepime HCl (Maxipime 2gm/50 ml (Pmx)) 50 ml @ 100 mls/hr Q8 IVPB Last administered on 01/01/17t 06:54; Admin Dose 100 MLS/HR; Start 12/30/16 at 22:00 Ondansetron HCl (Zofran Inj) 4 mg Q6H PRN IV NAUSEA AND/OR VOMITING; Start at 11:30 Acetaminophen (Tylenol Supp) 650 mg Q6H PRN CO PAIN LEVEL 1-3 OR FEVER; Start 12/30/16 at 11:30 Morphine Sulfate (morphine) 2 mg Q4H PRN IV SEVERE PAIN LEVEL 7-10 Last administered on 12/31/16 14:33; Admin Dose 2 MG; Start 12/30/16 at 11:30 Docusate Sodium (Colace) 100 mg Q12H PRN PO CONSTIPATION; Start 12/30/16 at 11: 30 Magnesium Hydroxide (Milk Of Mag) 30 ml DAILY PRN PO CONSTIPATION; Start at 11:30 Bisacodyl (Dulcolax Supp) 10 mg DAILY PRN CO CONSTIPATION; Start 12/30/16 at 11 :30 Pantoprazole (Protonix Iv) 40 mg DAILY@06 IV Last administered on 01/01/17 05: 47; Admin Dose 40 MG; Start 12/31/16 at 06:00 Ascorbic Acid (Vitamin C) 500 mg DAILY GTB Last administered on 12/31/16 08:55 ; Admin Dose 500 MG; Start 12/31/16 at 09:00 Bisacodyl (Dulcolax Supp) 10 mg DAILY PRN CO CONSTIPATION; Start 12/30/16 at 15 :30 Enalapril Maleate (Vasotec) 2.5 mg Q6H PRN GTB SBP ABOVE 160; Start 12/30/16 at 15:30 Furosemide (Lasix) 40 mg DAILY PEG Last administered on 12/31/16 08:55; Admin Dose 40 MG; Start 12/31/16 at 09:00 Lorazepam (Ativan) 0.5 mg Q6 PO Last administered on 01/01/17 05:47; Admin Dose 0.5 MG; Start 12/30/16 at 18:00 Magnesium Hydroxide (Milk Of Mag) 30 ml DAILY PRN GTB CONSTIPATION; Start 12/30 at 15:30 Multivitamins Therapeutic (Theragran) 1 tab DAILY GTB Last administered on 12/31 08:55; Admin Dose 1 TAB; Start 12/31/16 at 09:00 Ondansetron HCl (Zofran Tab) 4 mg Q6H PRN GTB NAUSEA AND/OR VOMITING; Start 7/ 20/17 at 15:30 Phenobarbital (Luminal) 60 mg TID GTB Last administered on 12/31/16 20:33; Admin Dose 60 MG; Start 12/30/16 at 21:00 Eye Lubricant (Artificial Tears Oph) 1 drop Q4 BOTH EYES Last administered on 05:46; Admin Dose 1 DROP; Start 12/30/16 at 18:00 Zinc Sulfate (Zinc Sulfate) 220 mg DAILY GTB Last administered on 12/31/16 08: 54; Admin Dose 220 MG; Start 12/31/16 at 09:00 Saccharomyces Boulardii (Florastor) 250 mg DAILY GTB Last administered on 08:54; Admin Dose 250 MG; Start 12/31/16 at 09:00 Levetiracetam (Keppra Liquid) 1,000 mg BID GTB Last administered on 12/31/16 20:33; Admin Dose 1,000 MG; Start 12/30/16 at 21:00 Morphine Sulfate 2 mg 2 mg Q2H PRN IV PAIN Last administered on 12/31/16 23:04 ; Admin Dose 2 MG; Start 12/31/16 at 17:00 Morphine Sulfate/ Sodium Chloride 100 ml @ 1 mls/hr TITRATE IV Last administered on 01/01/17 00:58; Admin Dose 1 MLS/HR; Start 01/01/17 at 00:00 Vancomycin HCl/ Sodium Chloride (Vancocin/NS) 250 ml @ 83.333 mls/ hr Q24H IVPB ; Start 01/01/17 at 08:00 Assessment/Plan Additional Assessment/Plan Extensive conversation with family members yesterday, in person and by phone. They are adamant about obtaining results of the EEG and neuro consultation prior to comfort measures. Patient was in severe distress yesterday compared to my prior examination however he is receiving low doses of comfort medications. I have explained to family members that his respiratory status is causing him great suffering and have encouraged them to change to comfort measures only. They still want to wait for results of EEG, I have explained to them that this would not change his overall prognosis. LINCOLN SHELDON Jan 01, 2017 09:09
--- NOTE | 2017-01-06 14:43 | DES ---
Date/Time of Note Date/Time of Note DATE: 01/06/17 TIME: 14:36 Discharge/ Summary Admission/Discharge Info Admit Date/Time Dec 30, 2016 at 11:38 Discharge Date/Time Jan 01, 2017 at 14:16 Final Diagnosis 1. Respiratory failure with Sepsis from suspect early tracheobronchitis and aspiration Preliminary Cause of 1. Acute respiratory failure. Etiology possible aspiration versus seizure. 2. Seizures. Likely secondary to previous anoxic brain injury. 3. Recent cardiac arrest. EF at 55% with abnormal diastolic dysfunction. 4. Suspect sepsis from early tracheobronchitis 5. Leukocytosis suspect secondary to sepsis versus seizures. 6. History of essential hypertension. 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 Per report patient had become dyspneic and had difficulty with oxygen saturation maintenance above 90%. He was subsequently brought to [facility]. He did have a brain CT scan of his head that showed relatively extensive findings involving the bilateral cerebral hemispheres compatible with global hypoxic ischemic injury. There is no acute intracranial hemorrhage or herniation or midline shift. Additionally chest x-ray done showed no evidence of acute cardiopulmonary process. Additional white count did show him to have leukocytosis with white count of 15.6 and he did have some also noted anemia normocytic normochromic. He is found to be with suspect sepsis with lactic acid of 2.8 which did downward trend 2.6 with also noted transaminitis with no hyperbilirubinemia. Patient also came in afebrile but was noted to be tachycardic as high as 129 but this did downward trend. We will evaluate him for the aformentiond issues Hospital Course This is a 61 year old male with recent history of cardiac arrest (reportedly after choking from food) who was previously hospitalized at [facility] 3 weeks ago and found to have cardiopulmonary arrest with anoxic encephalopathy and brain injury who was brought to [facility] do too reports of increased shortness of breath. Of note, patient does have tracheostomy in place as well as peg tube. Due to worsening of his respiratory status he was about to the hospital. He had a CT scan of his brain that showed extensive findings involving bilateral cerebral hemispheres compatible with global hypoxic ischemic injury. There were no acute intracranial hemorrhage or herniation or midline shift. No significance findings were seen in his chest x- ray. He did have a white count of 15.6 and an elevated lactic acid at 2.8. He was also tachycardic and did have clinical picture consistent with sepsis. Patient did have multiple Consultants to follow including neurologist, knitted garment finisher, infectious disease regional sales consultant and palliative care physician. Patient also reportedly had seizures from his previous anoxic brain injury and there was suspicion that has respiratory failure was likely from aspiration from his seizures and possible early tracheobronchitis. We did assess heart function and he did have an ejection fraction at 55% per echocardiogram. He was placed on broad spectrum antibiotic for his suspect sepsis as well. We continued him on ventilatory support for assistance for his respiratory failure. Patient did have overall poor prognosis with no appreciative response with optimization and medical management. Due to his poor prognosis we did get palliative care physician to follow to discuss with family goals of care for the patient. Patient was made DNR. Patient condition continue to worsen with tachypneic and there after some tachycardia. He was provided with appropriate analgesics per family request. It is noted that on January 01 2017 call was made out to MD concerning patient's condition and eventual loss of pulse and no further appearance of work of self breathing. Nurse practitioner was sent to the scene to assess the patient. Patient was unresponsive to verbal and painful stimulus. No spontaneous breathing and no heart sounds were auscultated and patient was without pulse. Corneal reflex was not present. Patient was pronounced at 8:38 a.m. on December 30 2016. Family was at the bedside during the time and they were made aware of situation. Discussed case with DANELLE Lynch Jan 06, 2017 14:43
== END 2017-01-01 14:16 | disposition expired | DRG 208 ==
LOC: E/R 09:44 → TEL 11:38
PROVIDERS: ADMIT Internal Medicine; ATTEND Internal Medicine
PROC: 5A1945Z Respiratory Ventilation, 24-96 Consecutive Hours (ICD-10-PCS; principal; 2016-12-30)
DX: J96.20 Acute and chronic respiratory failure, unspecified whether with hypoxia or hypercapnia (principal); G93.1 Anoxic brain damage, not elsewhere classified; A41.9 Sepsis, unspecified organism; R56.9 Unspecified convulsions; Z93.0 Tracheostomy status; E87.2 Acidosis; Z86.74 Personal history of sudden cardiac arrest; J44.9 Chronic obstructive pulmonary disease, unspecified; I10 Essential (primary) hypertension; D64.9 Anemia, unspecified; Z93.1 Gastrostomy status; Z87.891 Personal history of nicotine dependence; Z91.5 Personal history of self-harm; Z66 Do not resuscitate
CPT/HCPCS: 36415; 36600; 70450; 71010; 80053; 80061; 80184; 80202; 81003; 82803; 83036; 83605; 83690; 83735; 84100; 84436; 84443; 84479; 84484; 85025; 87040; 87070; 87081; 87086; 93005; 93306; 94002; 94003; 95819; 96361; 96365; 96366; 96368; 96375; 96376; C9113; J0692; J2060; J2270; J3370; J7030; J7050